=== PATIENT | female | born 1960 | race American Indian/Alaskan Native ===

== ENCOUNTER 2017-01-28 11:19 | Inpatient (IN) | payer OTHER ==
[2017-01-28] MEDS ORDERED: SODIUM CHLORIDE 1,000 ML IV STA (11:40)
[2017-01-28 12:01] LABS: BASOPHIL 0.2 % (0-2.0); EOSINOPHIL 0.5 % (0-4.5); MCH 21.6 pg (25.7-33.7); MCHC 31.2 g/dl (32.0-36.0); MEAN CELL VOLUME 69.4 fl (80-96); MEAN PLT VOLUME 7.1 fl (7.5-11.1); NEUTROPHILS 65.9 % (42.8-82.8); PLATELET COUNT 227 K/MM3 (134-434); RDW 19.4 % (11.6-15.6); WHITE BLOOD COUNT 7.9 K/mm3 (4.0-10.0)
[2017-01-28 12:19] LABS: URINE APPEARANCE CLEAR; URINE BILIRUBIN NEGATIVE (NEGATIVE); URINE BLOOD NEGATIVE (NEGATIVE); URINE COLOR LTYELLOW; URINE GLUCOSE (UA) NEGATIVE (NEGATIVE); URINE KETONE NEGATIVE (NEGATIVE); URINE MARIJUANA THC NEGATIVE ng/ml (CUTOFF=50); URINE NITRITE NEGATIVE (NEGATIVE); URINE PROTEIN NEGATIVE (NEGATIVE); URINE UROBILINOGEN NEGATIVE mg/dL (0.2-1.0)
[2017-01-28 12:27] LABS: ALBUMIN 3.2 g/dl (3.4-5.0); ANION GAP 11 (8-16); BILIRUBIN,TOTAL 0.3 mg/dL (0.2-1.0); CALCIUM 8.3 mg/dL (8.5-10.1); CO2 24 mmol/L (21-32); CREATININE 0.9 mg/dL (0.55-1.02); GLUCOSE,RANDOM 109 mg/dL (74-106); SGOT/AST 25 U/L (15-37); SGPT/ALT 20 U/L (12-78)
[2017-01-28 12:29] LABS: ALK PHOS 74 U/L (45-117); TOT PROT 6.3 g/dl (6.4-8.2)
[2017-01-28 12:36] LABS: URINE LEUK ESTERASE TRACE (NEGATIVE)
[2017-01-28 12:39] LABS: URINE WBC 2 /hpf (3-5)
--- NOTE | 2017-01-28 13:06 | EKG ---
Test Reason : Blood Pressure : / mmHG Vent. Rate : 087 BPM Atrial Rate : 087 BPM P-R Int : 136 ms QRS Dur : 090 ms QT Int : 410 ms P-R-T Axes : 034 043 132 degrees QTc Int : 493 ms NORMAL SINUS RHYTHM NONSPECIFIC T WAVE ABNORMALITY ABNORMAL ECG NO PREVIOUS ECGS AVAILABLE Confirmed by EVELYN BHAKTA MD ([id number]) on 01/28/2017 1:06:26 PM Referred By: Confirmed By:EVELYN BHAKTA MD
--- NOTE | 2017-01-28 13:16 | PDOC ---
History of Present Illness - General Chief Complaint: Pain Stated Complaint: Weakness/ABD PAIN Time Seen by Provider: 01/28/17 11:38 History Source: Patient Exam Limitations: No Limitations - History of Present Illness Travel History: No Initial Comments: 01/28/17 13:07 01/28/17 13:11 HPI: This 56 yr old female with c/o abdominal pain since yesterday. she did have a few bouts of vomiting and noted dark black stools. she has had a GIB in the past when she was younger. 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 Her significant h/o morbid depression results in multiple medications for treatment and under the care of psychiatrist, Dr. Box from [facility]. She does not take any blood thinnners. Chief Compliant: abd pain mostly to the LLQ Pain location:LLQ abd Duration: since yesterday Modifying factors:none Quality:dull Radiating:none Severity:moderate Time: constant PMH: morbid depression, HTN FH: Pt has not recently traveled outside the country in the last 30 days. Pt has not been in contact with people who have traveled out of the country, in contact with people who have been ill with fever, n, v, d. SH: smoking use: current every day smoker illicit drug use: denies use for several years alcohol use: denies use for several years PSH: Home med use noted on SEP Allergies:Multiple ABT on SEP noted Immunizations: PCP: Dr. Ram Past History - Past Medical History Allergies/Adverse Reactions: Allergies Allergy/AdvReac Type Severity Reaction Status Date / Time erythromycin base Allergy Verified 01/28/17 11:50 Penicillins Allergy Verified 01/28/17 11:50 Sulfa (Sulfonamide Allergy Verified 01/28/17 11:50 Antibiotics) Home Medications: Ambulatory Orders Carbamazepine [Tegretol -] 200 mg PO BID 01/28/17 Carvedilol [Coreg -] 12.5 mg PO BID 01/28/17 Citalopram Hydrobromide [Celexa -] 40 mg PO DAILY 01/28/17 LamoTRIgine [LaMICtal] 150 mg PO BID 01/28/17 Anemia: Yes HTN: Yes Psychiatric Problems: Yes Seizures: Yes - Immunization History Immunization Up to Date: Yes - Psycho/Social/Smoking Cessation Hx Suicidal Ideation: No Smoking History: Current every day smoker Have you smoked in the past 12 months: Yes Number of Cigarettes Smoked Daily: 5 Information on smoking cessation initiated: No Hx Alcohol Use: Yes Drug/Substance Use Hx: Yes (cocaine) Substance Use Type: Alcohol, Cocaine Review of Systems - Review of Systems Able to Perform ROS?: Yes Comments:: 01/28/17 13:16 General statement: I have abd pain for 24 hours Hematology: neg history of bleeding/blood thinners Skin: Neg for lesions, rash, bruising. HEENT: Neg symptoms Respiratory: Neg SOB or difficulty in breathing Cardiac: Neg chest pain GI: + pain, with small bouts of nausea and vomiting and with diarrhea : Neg problems on voiding MS: Neg for joint pain/stiffness, no edema Neuro: Neg for LOC, weakness, Endocrine: Neg for excess thirst/hunger, cold/heat intolerance, excess sweating Allergies: + for allergies *Physical Exam - Vital Signs Last Vital Signs Temp Pulse Resp BP Pulse Ox 98.3 F 86 20 134/78 100 01/28/17 11:38 01/28/17 12:43 01/28/17 12:43 01/28/17 12:43 01/28/17 12:43 - Physical Exam Comments: 01/28/17 13:17 General Appearance: This pale and mildly tremulous female with c/o abd pain V/S: hemodynamically stable, afebrile Skin: WNL of pt's skin color, no signs of pallor, mottling, cyanosis Head:symmetrical Eyes: EOM's intact, PERRLA Ears: denies pain Nose: patent Throat: lips, teeth, gums, tongue, buccal mucos pink and moist Lungs: Chest symmetry equal. Cap refill <3 seconds. Lung sounds clear Cardiac: PMI at R 4MCL space, pos S1 and S2, regular rate. Abdomen: Soft, round, nontender : Not observed Muscularskeletal: Gait steady, ambulated in to ER, no edema +PMS Neuro: AAOx3, cognitively intact, speech clear and appropriate. ED Treatment Course - LABORATORY CBC & Chemistry Diagram: 01/28/17 11:48 01/28/17 11:48 - ADDITIONAL ORDERS Additional order review: Laboratory Results 01/28/17 01/28/17 01/28/17 12:38 11:48 11:48 Sodium 141 Potassium 4.4 Chloride 106 Carbon Dioxide 24 Anion Gap 11 BUN 31 H Creatinine 0.9 Creat Clearance w eGFR > 60 Random Glucose 109 H Calcium 8.3 L Total Bilirubin 0.3 AST 25 ALT 20 Alkaline Phosphatase 74 Total Protein 6.3 L Albumin 3.2 L Urine Color Urine Appearance Urine pH Urine Protein Urine Glucose (UA) Urine Ketones Urine Blood Urine Nitrite Urine Bilirubin Urine Urobilinogen Ur Leukocyte Esterase Urine RBC Urine WBC Ur Epithelial Cells Stool Occult Blood Positive Opiates Screen Negative Methadone Screen Negative Barbiturate Screen Negative Phencyclidine Screen Negative Ur Amphetamines Screen Negative MDMA (Ecstasy) Screen Negative Benzodiazepines Screen Negative Cocaine Screen Positive U Marijuana (THC) Screen Negative 01/28/17 11:48 Sodium Potassium Chloride Carbon Dioxide Anion Gap BUN Creatinine Creat Clearance w eGFR Random Glucose Calcium Total Bilirubin AST ALT Alkaline Phosphatase Total Protein Albumin Urine Color Ltyellow Urine Appearance Clear Urine pH 6.0 Urine Protein Negative Urine Glucose (UA) Negative Urine Ketones Negative Urine Blood Negative Urine Nitrite Negative Urine Bilirubin Negative Urine Urobilinogen Negative Ur Leukocyte Esterase Trace H Urine RBC None Urine WBC 2 Ur Epithelial Cells Rare Stool Occult Blood Opiates Screen Methadone Screen Barbiturate Screen Phencyclidine Screen Ur Amphetamines Screen MDMA (Ecstasy) Screen Benzodiazepines Screen Cocaine Screen U Marijuana (THC) Screen 01/28/17 11:48 RBC 2.85 L MCV 69.4 L MCHC 31.2 L RDW 19.4 H MPV 7.1 L Neutrophils % 65.9 Lymphocytes % 26.4 Monocytes % 7.0 Eosinophils % 0.5 Basophils % 0.2 - RADIOLOGY Radiology Studies Ordered: Category Date Time Status ABDOMEN & PELVIS CT WITH CONTR [CT] Stat CT Scan 01/28/17 11:38 Ordered - Medications Given in the ED: ED Medications Discontinued Medications Generic Name Dose Route Start Last Admin Trade Name Freq PRN Reason Stop Dose Admin Sodium Chloride 1,000 mls @ 1,000 mls/hr 01/28/17 11:40 01/28/17 12:07 Normal Saline - IV 01/28/17 12:39 1,000 mls/hr ASDIR STA Administration Medical Decision Making - Medical Decision Making 01/28/17 13:18 Patient is seen and examined. A/P: This 56 yr old with abd pain to the LLQ , dark stook, vomiting, pale in color -CBC with noted anemic numbers -BMP -PT -Abd ct pending po contrast =EKG -type and screen -drug screen with +cocaine level noted =IVF -Stool for guaic with + occult noted -Pt for admission to Dr. Ram service. 01/28/17 14:28 Labs noted: Laboratory Tests 01/28/17 01/28/17 01/28/17 11:48 11:48 11:48 WBC 7.9 RBC 2.85 L Hgb 6.2 L* Hct 19.8 L MCV 69.4 L MCH 21.6 L MCHC 31.2 L RDW 19.4 H Plt Count 227 MPV 7.1 L Neutrophils % 65.9 Lymphocytes % 26.4 Monocytes % 7.0 Eosinophils % 0.5 Basophils % 0.2 Sodium 141 Potassium 4.4 Chloride 106 Carbon Dioxide 24 Anion Gap 11 BUN 31 H Creatinine 0.9 Creat Clearance w eGFR > 60 Random Glucose 109 H Calcium 8.3 L Total Bilirubin 0.3 AST 25 ALT 20 Alkaline Phosphatase 74 Total Protein 6.3 L Albumin 3.2 L Stool Occult Blood Opiates Screen Negative Methadone Screen Negative Barbiturate Screen Negative Phencyclidine Screen Negative Ur Amphetamines Screen Negative MDMA (Ecstasy) Screen Negative Benzodiazepines Screen Negative Cocaine Screen Positive U Marijuana (THC) Screen Negative 01/28/17 12:38 WBC RBC Hgb Hct MCV MCH MCHC RDW Plt Count MPV Neutrophils % Lymphocytes % Monocytes % Eosinophils % Basophils % Sodium Potassium Chloride Carbon Dioxide Anion Gap BUN Creatinine Creat Clearance w eGFR Random Glucose Calcium Total Bilirubin AST ALT Alkaline Phosphatase Total Protein Albumin Stool Occult Blood Positive Opiates Screen Methadone Screen Barbiturate Screen Phencyclidine Screen Ur Amphetamines Screen MDMA (Ecstasy) Screen Benzodiazepines Screen Cocaine Screen U Marijuana (THC) Screen 01/28/17 14:29 -2 u PRBC ordered after a type and screen -stool guiac + -pt NPO, IVF -Spoke with Dr. Carver re: admission -requested Dr. Martinez for GI (consult placed) -pt for admission ICU currently. 01/28/17 14:38 *DC/Admit/Observation/Transfer Diagnosis at time of Disposition: Occult blood positive stool Abdominal pain Qualifiers: Abdominal location: left lower quadrant Qualified Code(s): R10.32 - Left lower quadrant pain Anemia Qualifiers: Anemia type: other cause Other causes of anemia: other cause, not classified Qualified Code(s): D64.89 - Other specified anemias Gastrointestinal bleed Qualifiers: GI bleed type/associated pathology: melena Qualified Code(s): K92.1 - Melena - Discharge Dispostion Admit: Yes - Referrals Referrals: Nabeel Ram MD [Primary Care Provider] - Blade Mratinez DO [Staff Physician] -
[2017-01-28 15:42] LABS: INR 1.12 (0.82-1.09); PROTHROMBIN TIME (PATIENT) 12.4 SEC (9.98-11.88)
[2017-01-28 15:45] LABS: ACTIVATED PTT 27.8 SECONDS (26.9-34.4)
[2017-01-28] MEDS ORDERED: ACETAMINOPHEN 325 MG TABLET (FP) PO PRN (15:53)
[2017-01-28] MEDS ORDERED: ONDANSETRON 4 MG/2 ML VIAL IVPB PRN (15:53)
[2017-01-28] MEDS ORDERED: PANTOPRAZOLE SODIUM 80 MG in SODIUM CHLORIDE 100 ML IVPB ONE (16:02)
--- NOTE | 2017-01-28 16:02 | HP ---
Admitting History and Physical - Primary Care Physician PCP: Nabeel Ram - Admission Chief Complaint: I threw up History of Present Illness: Ms Badillo is a 56 year old female who comes in with abdominal pain and bleeding. She says she was in her normal state of health on Wednesday. She was at a green party and she was eating meat (she is normally vegetarian). On Wednesday she says she began to feel bad. She says she started having abdominal pain on Wednesday. She says it was located in her lower left abdomen and would radiate across. She says it was a constipated like pain. Wednesday and Wednesday she was not eating much because of the abdominal pain. Yesterday she ate something and she said she felt it get caught in her throat. She threw up and then went to bed. She says when she looked in the morning it was blood. She said with this she was also having dark black stool. She had a headache associated with it and she was taking a full aspirin once a day. She was not taking ibuprofen. She says she had lightheadedness, shortness of breath, chest pressure, and weakness with minimal exertion. She denies fevers, chills, difficulty or pain on urination, or swelling. She says she has a history of anemia and was recommended to have a colonoscopy in July but has been unable secondary to insurance issues. History Source: Patient Limitations to Obtaining History: No Limitations - Past Medical History Cardiovascular: Yes: HTN Psych: Yes: Depression - Past Surgical History Past Surgical History: Yes: Tubal Ligation Additional Past Surgical History: - Smoking History Smoking history: Current every day smoker Have you smoked in the past 12 months: Yes Aproximately how many cigarettes per day: 5 - Alcohol/Substance Use Hx Alcohol Use: Yes History of Substance Use: reports: Cocaine (10 years ago) - Social History Usual Living Arrangement: Yes: With Parent ADL: Independent History of Recent Travel: No Home Medications - Allergies Allergies/Adverse Reactions: Allergies Allergy/AdvReac Type Severity Reaction Status Date / Time erythromycin base Allergy Verified 01/28/17 11:50 Penicillins Allergy Verified 01/28/17 11:50 Sulfa (Sulfonamide Allergy Verified 01/28/17 11:50 Antibiotics) - Home Medications Home Medications: Ambulatory Orders Carbamazepine [Tegretol -] 200 mg PO BID 01/28/17 Carvedilol [Coreg -] 12.5 mg PO BID 01/28/17 Citalopram Hydrobromide [Celexa -] 40 mg PO DAILY 01/28/17 LamoTRIgine [LaMICtal] 150 mg PO BID 01/28/17 Family Disease History - Family Disease History Family Disease History: Other: Father (CVA), Mother (dementia), Brother (? colon cancer), Son (IBS) Review of Systems Findings/Remarks: Full review of systems obtained, as per HPI and otherwise negative Physical Examination Vital Signs: Vital Signs Temperature 98.3 F 01/28/17 11:38 Pulse Rate 86 01/28/17 12:43 Respiratory Rate 20 01/28/17 12:43 Blood Pressure 134/78 01/28/17 12:43 O2 Sat by Pulse Oximetry (%) 100 01/28/17 12:43 Constitutional: Yes: Well Nourished, No Distress, Calm Eyes: Yes: Conjunctiva Clear, EOM Intact, PERRL HENT: Yes: Atraumatic, Normocephalic Cardiovascular: Yes: Tachycardia. No: Gallop, Murmur, Rub Respiratory: Yes: Regular, CTA Bilaterally, On Nasal O2. No: Rales, Rhonchi, Wheezes Gastrointestinal: Yes: Normal Bowel Sounds, Soft. No: Distention, Tenderness Extremities: Yes: WNL Edema: No Labs: Laboratory Results - last 24 hr 01/28/17 01/28/17 01/28/17 11:48 11:48 11:48 WBC 7.9 RBC 2.85 L Hgb 6.2 L* Hct 19.8 L MCV 69.4 L MCH 21.6 L MCHC 31.2 L RDW 19.4 H Plt Count 227 MPV 7.1 L Neutrophils % 65.9 Lymphocytes % 26.4 Monocytes % 7.0 Eosinophils % 0.5 Basophils % 0.2 INR PTT (Actin FS) Sodium 141 Potassium 4.4 Chloride 106 Carbon Dioxide 24 Anion Gap 11 BUN 31 H Creatinine 0.9 Creat Clearance w eGFR > 60 Random Glucose 109 H Calcium 8.3 L Total Bilirubin 0.3 AST 25 ALT 20 Alkaline Phosphatase 74 Total Protein 6.3 L Albumin 3.2 L Urine Color Ltyellow Urine Appearance Clear Urine pH 6.0 Urine Protein Negative Urine Glucose (UA) Negative Urine Ketones Negative Urine Blood Negative Urine Nitrite Negative Urine Bilirubin Negative Urine Urobilinogen Negative Ur Leukocyte Esterase Trace H Urine RBC None Urine WBC 2 Ur Epithelial Cells Rare Stool Occult Blood Opiates Screen Methadone Screen Barbiturate Screen Phencyclidine Screen Ur Amphetamines Screen MDMA (Ecstasy) Screen Benzodiazepines Screen Cocaine Screen U Marijuana (THC) Screen Blood Type Antibody Screen Crossmatch 01/28/17 01/28/17 01/28/17 11:48 12:38 12:38 WBC RBC Hgb Hct MCV MCH MCHC RDW Plt Count MPV Neutrophils % Lymphocytes % Monocytes % Eosinophils % Basophils % INR PTT (Actin FS) Sodium Potassium Chloride Carbon Dioxide Anion Gap BUN Creatinine Creat Clearance w eGFR Random Glucose Calcium Total Bilirubin AST ALT Alkaline Phosphatase Total Protein Albumin Urine Color Urine Appearance Urine pH Urine Protein Urine Glucose (UA) Urine Ketones Urine Blood Urine Nitrite Urine Bilirubin Urine Urobilinogen Ur Leukocyte Esterase Urine RBC Urine WBC Ur Epithelial Cells Stool Occult Blood Positive Opiates Screen Negative Methadone Screen Negative Barbiturate Screen Negative Phencyclidine Screen Negative Ur Amphetamines Screen Negative MDMA (Ecstasy) Screen Negative Benzodiazepines Screen Negative Cocaine Screen Positive U Marijuana (THC) Screen Negative Blood Type B POSITIVE Antibody Screen Negative Crossmatch 01/28/17 01/28/17 13:00 14:42 WBC RBC Hgb Hct MCV MCH MCHC RDW Plt Count MPV Neutrophils % Lymphocytes % Monocytes % Eosinophils % Basophils % INR 1.12 PTT (Actin FS) 27.8 Sodium Potassium Chloride Carbon Dioxide Anion Gap BUN Creatinine Creat Clearance w eGFR Random Glucose Calcium Total Bilirubin AST ALT Alkaline Phosphatase Total Protein Albumin Urine Color Urine Appearance Urine pH Urine Protein Urine Glucose (UA) Urine Ketones Urine Blood Urine Nitrite Urine Bilirubin Urine Urobilinogen Ur Leukocyte Esterase Urine RBC Urine WBC Ur Epithelial Cells Stool Occult Blood Opiates Screen Methadone Screen Barbiturate Screen Phencyclidine Screen Ur Amphetamines Screen MDMA (Ecstasy) Screen Benzodiazepines Screen Cocaine Screen U Marijuana (THC) Screen Blood Type B POSITIVE Antibody Screen Crossmatch See Detail Imaging - Results Cat Scan: Report Reviewed Problem List - Problems (1) Gastrointestinal bleed Assessment/Plan: -patient with melena and possible hematochezia -admit to the ICU -start on protonix gtt -seen by GI and will decide on intervention Code(s): K92.2 - GASTROINTESTINAL HEMORRHAGE, UNSPECIFIED Qualifiers: GI bleed type/associated pathology: unspecified gastrointestinal hemorrhage type Qualified Code(s): K92.2 - Gastrointestinal hemorrhage, unspecified (2) Anemia Assessment/Plan: -says had anemia in July but was asymptomatic -however now with active bleed and symptomatic -having pre-syncope, shortness of breath, and chest pain -transfuse and monitor Code(s): D64.9 - ANEMIA, UNSPECIFIED Qualifiers: Anemia type: other cause Other causes of anemia: acute posthemorrhagic Qualified Code(s): D62 - Acute posthemorrhagic anemia (3) Abdominal pain Assessment/Plan: -CT scan reviewed -will d/w GI, do not think infectious Code(s): R10.9 - UNSPECIFIED ABDOMINAL PAIN Qualifiers: Abdominal location: left lower quadrant Qualified Code(s): R10.32 - Left lower quadrant pain (4) Depression Assessment/Plan: -continue home regimen Code(s): F32.9 - MAJOR DEPRESSIVE DISORDER, SINGLE EPISODE, UNSPECIFIED Qualifiers: Depression Type: major depressive disorder Major depression recurrence : recurrent Psychotic features: without psychotic features (5) Chest pain Assessment/Plan: -suspect secondary to demand from anemia -will check cardiac enzymes x3 -cardiology consult Code(s): R07.9 - CHEST PAIN, UNSPECIFIED Assessment/Plan 67 minutes spent in critical care time with this patient
--- NOTE | 2017-01-28 16:09 | CON.GI ---
Consult Consult Specialty:: GI Referred by:: Dr. Wellington Carver Reason for Consultation:: Abdominal pain, hematemesis, anemia - History of Present Illness Chief Complaint: I have abdominal pain and vomited blood History of Present Illness: 56F admitted through [facility] ER for evaluation of weakness, abdominal pain and vomiting blood. The patient states being in [place] up until yesterday when her issues began. She describes a sensation of food getting stuck in her esophagus that seemed to improve after she vomited. The vomitus was bloody when she looked in the toilet bowl this morning. She also had a black bowel movement yesterday and a small black BM this morning as well, along with left sided abdominal cramping/pain that radiated to the . in the ER, triage vitals revealed T: 98.3, P: 97, BP: 129/93, hgb 6.2 with low MCV and BUN of 31. Urine tox was + for cocaine and while she does say that she used to abuse crack cocaine, she denies current use. She does recall being at a libertarian this weekend where there may have been cocaine present. She received 1 liter of NS. She was short of breath, complained of chest pressure while getting onto the ambulance and felt lightheaded. She did not lose consciousness. She alludes to having been told of being anemic from her last bloodwork with Dr. Ram 08/04. While he advised a colonoscopy she explains that insurance issues prevented her from scheduling one. She has never had an endoscopy either. She has a 1/2 brother that may have had some type of GI malignancy as he had a colon surgery. She took 325mg ASA wednesday and wednesday given that she had a headache as opposed to her daily 81mg ASA. Currently she denies lightheadedness, chest pain and there has been no active bleeding noted. - History Source History Provided By: Patient, Medical Record Limitations to Obtaining History: No Limitations - Past Medical History Cardio/Vascular: Yes: HTN Psych: Yes: Depression - Past Surgical History Additional Surgical History: BTL, - Alcohol/Substance Use Hx Alcohol Use: Yes (former alcohol abuse quit 10 years ago) History of Substance Use: reports: Cocaine (denies current use albeit urine tox +) - Smoking History Smoking history: Current every day smoker Have you smoked in the past 12 months: Yes Aproximately how many cigarettes per day: 5 - Social History Usual Living Arrangement: With Parent ADL: Independent Occupation: Disabled Place of : [employer] [facility] History of Recent Travel: No Home Medications - Allergies Allergies/Adverse Reactions: Allergies Allergy/AdvReac Type Severity Reaction Status Date / Time erythromycin base Allergy Verified 01/28/17 11:50 Penicillins Allergy Verified 01/28/17 11:50 Sulfa (Sulfonamide Allergy Verified 01/28/17 11:50 Antibiotics) - Home Medications Home Medications: Ambulatory Orders Carbamazepine [Tegretol -] 200 mg PO BID 01/28/17 Carvedilol [Coreg -] 12.5 mg PO BID 01/28/17 Citalopram Hydrobromide [Celexa -] 40 mg PO DAILY 01/28/17 LamoTRIgine [LaMICtal] 150 mg PO BID 01/28/17 Family Disease History - Family Disease History Family Disease History: Other: Father ( 68: CVA), Mother (Alive: 84: dementia), Brother (3: healthy, 1 1/2 brother with ? colon cancer), Sister (2: healthy) Other Family History: 2 healthy children Review of Systems - Review of Systems Constitutional: denies: Unintentional Wgt. Loss Cardiovascular: reports: Chest Pain, Shortness of Breath Respiratory: reports: SOB on Exertion. denies: Cough Gastrointestinal: reports: Abdominal Pain, Melena, Vomiting Blood. denies: Rectal Bleeding Hematology/Lymphatic: reports: Easily Bruised Physical Exam-GI Vital Signs: Vital Signs Temperature Afeb 01/28/17 16:30 Pulse Rate 100 01/28/17 16:30 Respiratory Rate 20 01/28/17 16:30 Blood Pressure 137/81 01/28/17 16:30 O2 Sat by Pulse Oximetry (%) 100 01/28/17 16:30 Constitutional: Yes: Well Nourished, Calm Eyes: No: Sclera Icterus Cardiovascular: Yes: Tachycardia. No: Murmur Respiratory: Yes: CTA Bilaterally Gastrointestinal Inspection: No: Distention, Scars ...Auscultate: No: Normoactive Bowel Sounds ...Palpate: Yes: Soft, Tenderness (Mild TTP left abdomen). No: Guarding, Hepatomegaly, Splenomegaly ...Percussion: No: Tympanitic ...Rectal Exam: Yes: Other (No external lesions, no masses, scant dark brown stool guaiac Positive) Edema: Yes Edema: LLE: Trace (LLE>RLE), RLE: Trace Neurological: Yes: Alert, Oriented Labs: INR, PTT INR 1.12 (0.82-1.09) 01/28/17 14:42 CBC, BMP 01/28/17 11:48 01/28/17 11:48 Hepatic Panel Total Bilirubin 0.3 mg/dL (0.2-1.0) 01/28/17 11:48 AST 25 U/L (15-37) 01/28/17 11:48 ALT 20 U/L (12-78) 01/28/17 11:48 Alkaline Phosphatase 74 U/L (45-117) 01/28/17 11:48 Albumin 3.2 g/dl (3.4-5.0) L 01/28/17 11:48 INR INR 1.12 (0.82-1.09) 01/28/17 14:42 Imaging - Results Cat Scan: Report Reviewed (With Dr. Vinson: Hiatal hernia, ? thickening of gastric wall, otherwise no acute pathology within the abdomen) Problem List - Problems (1) Gastrointestinal bleed Assessment/Plan: Acute bleeding event described while microcytosis points towards a chronic process as well. I discussed this with Ms. Badillo and explained that once she is properly transfused, to exclude intraluminal pathology such as esophageal mass, ulcers, bleeding blood vessels or other processes of the intestinal tract that could lead to GI bleeding such as a colon cancer, EGD and colonoscopy could be undertaken (starting with EGD given h/o hematemesis and dysphagia). We discussed potential risks of the procedure like but not limited to bleeding, perforation requiring surgery to repair, infection and sedation medication effects all of which could be potentially life threatening. She has agreed to the procedures. For now: Agree with ICU admission NPO except meds Transfuse to hgb 8-9 Protonix 80mg bolus (ordered) followed by infusion @ 8mg/hr AM labs Monitor for signs of active ongoing GI bleeding and call if any change in patient status Code(s): K92.2 - GASTROINTESTINAL HEMORRHAGE, UNSPECIFIED Qualifiers: GI bleed type/associated pathology: melena Qualified Code(s): K92.1 - Melena
[2017-01-28 16:53] LABS: ANISOCYTOSIS 1+; HYPOCHROMIA 2+; MICROCYTOSIS 1+
[2017-01-28] MEDS: PANTOPRAZOLE SODIUM 80 MG in SODIUM CHLORIDE 100 ML IVPB SCH (16:57)
[2017-01-28] MEDS: SODIUM CHLORIDE 1,000 ML IV SCH (16:57)
--- NOTE | 2017-01-28 16:57 | CONSULT ---
Consultation: REQUESTING PROVIDER: Dr. Carver CONSULT REQUEST: We have been asked to medically evaluate this patient for ( specify). HISTORY OF PRESENT ILLNESS: 56 year old female w/ pmh depression, HTN, ulcerative colitis, and previous GI bleed presented to the ED after 2 day hx of hematemesis, pain in her lower abdomen, and heart palpitations with b/l extremity numbness. Patient states she began having abdominal pain 4 days ago after a green party she went to on Wednesday. Reports one episode of hematemesis on Wednesday night (2 days ago) followed by 2 bowel movements of black, tarry quality. [place] exhausted for the past few days with lightheadedness when she tried to stand up. Patient has not eaten in 2 days. Additionally, she complains of food getting stuck in her chest when she swallows and neck pain near the jaw. She states that she hasn't had any of these symptoms in the past, but admits to having a bleeding ulcer many years ago. Pt states that she took 2 aleve a week ago. allergies: penicillin, erythromycin, sulfa-drugs (all cause anaphylaxis) pmh: depression, HTN, ulcerative colitis psh: tubal ligation tobacco: smokes 5 cigs/day for 40 years alcohol: recovering alcoholic, hasn't had a drink in 11 years drugs: denies, but states there may have been other individuals using cocaine her event on Wednesday FamHx: DM, stroke on father's side of the family, heart disease on mother's side , son with colitis REVIEW OF SYSTEMS: CONSTITUTIONAL: generalized weakness Absent: fever, chills, diaphoresis, , malaise, loss of appetite, weight change HEENT: Globus sensation (after eating) Absent: rhinorrhea, nasal congestion, throat pain, throat swelling, mouth swelling, ear pain, eye pain, visual changes CARDIOVASCULAR: palpitations, lightheadedness Absent: chest pain, syncope, irregular heart rate, , peripheral edema RESPIRATORY: dry cough Absent: shortness of breath, dyspnea with exertion, orthopnea, wheezing, stridor , hemoptysis GASTROINTESTINAL:abdominal pain, nausea, hematemesis, melana Absent: abdominal distension, vomiting, diarrhea, constipation, melena, hematochezia GENITOURINARY: Absent: dysuria, frequency, urgency, hesitancy, hematuria, flank pain, genital pain MUSCULOSKELETAL: neck pain Absent: myalgia, arthralgia, joint swelling, back pain, SKIN: Absent: rash, itching, pallor HEMATOLOGIC/IMMUNOLOGIC: Absent: easy bleeding, easy bruising, lymphadenopathy, frequent infections ENDOCRINE: Absent: unexplained weight gain, unexplained weight loss, heat intolerance, cold intolerance NEUROLOGIC: Absent: headache, focal weakness or paresthesias, dizziness, unsteady gait, seizure, mental status changes, bladder or bowel incontinence PSYCHIATRIC: Absent: anxiety, depression, suicidal or homicidal ideation, hallucinations. PHYSICAL EXAMINATION GENERAL: Awake, alert, and fully oriented, in no acute distress. HEAD: Normal with no signs of trauma. EYES: Pupils equal, round and reactive to light, extraocular movements intact, sclera anicteric, conjunctiva pale. No lid lag. EARS, NOSE, THROAT: Ears normal, nares patent, oropharynx clear without exudates. Moist mucous membranes. NECK: Normal range of motion, supple without lymphadenopathy, JVD, or masses. LUNGS: Breath sounds equal, clear to auscultation bilaterally. No wheezes, and no crackles. No accessory muscle use. HEART: Regular rate and rhythm, normal S1 and S2 without murmur, rub or gallop. ABDOMEN: Soft, (+) tenderness in LLQ + LUPQ, not distended, normoactive bowel sounds, no guarding, no rebound, no masses. No hepatomegaly or splenomegaly. MUSCULOSKELETAL: Normal range of motion at all joints. No bony deformities or tenderness. No CVA tenderness. UPPER EXTREMITIES: 2+ pulses, warm, well-perfused. No cyanosis. No clubbing. Cap refill 4 seconds. No peripheral edema. LOWER EXTREMITIES: 2+ pulses, warm, well-perfused. No calf tenderness. No peripheral edema. NEUROLOGICAL: Cranial nerves II-XII intact. Normal speech. Normal gait. PSYCHIATRIC: Cooperative. Good eye contact. Appropriate mood and affect. SKIN: Warm, dry, normal turgor, no rashes or lesions noted. CBC,CMP WBC 7.9 K/mm3 (4.0-10.0) 01/28/17 11:48 RBC 2.85 M/mm3 (3.60-5.2) L 01/28/17 11:48 Hgb 6.2 GM/dL (10.7-15.3) L* 01/28/17 11:48 Hct 19.8 % (32.4-45.2) L 01/28/17 11:48 MCV 69.4 fl (80-96) L 01/28/17 11:48 MCH 21.6 pg (25.7-33.7) L 01/28/17 11:48 MCHC 31.2 g/dl (32.0-36.0) L 01/28/17 11:48 RDW 19.4 % (11.6-15.6) H 01/28/17 11:48 Plt Count 227 K/MM3 (134-434) 01/28/17 11:48 MPV 7.1 fl (7.5-11.1) L 01/28/17 11:48 Neutrophils % 65.9 % (42.8-82.8) 01/28/17 11:48 Lymphocytes % 26.4 % (8-40) 01/28/17 11:48 Monocytes % 7.0 % (3.8-10.2) 01/28/17 11:48 Eosinophils % 0.5 % (0-4.5) 01/28/17 11:48 Basophils % 0.2 % (0-2.0) 01/28/17 11:48 Hypochromic-Microcytic 2+ 01/28/17 11:48 Anisocytosis 1+ 01/28/17 11:48 Microcytosis 1+ 01/28/17 11:48 Sodium 141 mmol/L (136-145) 01/28/17 11:48 Potassium 4.4 mmol/L (3.5-5.1) 01/28/17 11:48 Chloride 106 mmol/L (98-107) 01/28/17 11:48 Carbon Dioxide 24 mmol/L (21-32) 01/28/17 11:48 Anion Gap 11 (8-16) 01/28/17 11:48 BUN 31 mg/dL (7-18) H 01/28/17 11:48 Creatinine 0.9 mg/dL (0.55-1.02) 01/28/17 11:48 Creat Clearance w eGFR > 60 (>60) 01/28/17 11:48 Random Glucose 109 mg/dL (74-106) H 01/28/17 11:48 Calcium 8.3 mg/dL (8.5-10.1) L 01/28/17 11:48 Total Bilirubin 0.3 mg/dL (0.2-1.0) 01/28/17 11:48 AST 25 U/L (15-37) 01/28/17 11:48 ALT 20 U/L (12-78) 01/28/17 11:48 Alkaline Phosphatase 74 U/L (45-117) 01/28/17 11:48 Total Protein 6.3 g/dl (6.4-8.2) L 01/28/17 11:48 Albumin 3.2 g/dl (3.4-5.0) L 01/28/17 11:48 INR, PTT INR 1.12 (0.82-1.09) 01/28/17 14:42 Active Medications Generic Name Dose Route Start Last Admin Trade Name Freq PRN Reason Stop Dose Admin Acetaminophen 650 mg 01/28/17 15:53 Tylenol - PO Q4H PRN FEVER OR PAIN Carbamazepine 200 mg 01/28/17 22:00 Tegretol - PO BID MASSIMO Carvedilol 12.5 mg 01/28/17 22:00 Coreg - PO BID MASSIMO Chlorhexidine Gluconate 1 applic 01/28/17 22:00 Hibiclens For Decolonization - TP HS MASSIMO Citalopram Hydrobromide 40 mg 01/29/17 10:00 Celexa - PO DAILY MASSIMO Pantoprazole Sodium 80 mg/ 100 mls @ 10 mls/hr 01/28/17 16:35 Sodium Chloride IVPB Q10H MASSIMO 8 MG/HR Sodium Chloride 1,000 mls @ 100 mls/hr 01/28/17 16:00 Normal Saline - IV ASDIR MASSIMO Pantoprazole Sodium 80 mg/ 100 mls @ 200 mls/hr 01/28/17 16:02 Sodium Chloride IVPB 01/28/17 16:31 ONCE ONE Lamotrigine 100 mg 01/28/17 22:00 Lamictal - PO BID MASSIMO Lamotrigine 50 mg 01/28/17 22:00 Lamictal - PO BID MASSIMO Mupirocin 1 applic 01/28/17 22:00 Bactroban Ointment (For Decolonization) - NS 02/02/17 21:59 BID MASSIMO Ondansetron HCl 4 mg 01/28/17 15:53 Zofran Injection IVPB Q6H PRN NAUSEA EKG (01/28): NSR w/ non-specific T wave abnormality Imaging: CT abd/pelvis (01/28): moderate to large hiatal hernia seen with equivocal diffuse fold thickening ASSESSMENT/PLAN: 56 year old female with acute upper GI bleed Neuro/psych: LE paresthesias and lightheadedness post-standing likely 2/2 orthostasis/anemia -ondensetron PRN nausea -cont. lamotrigine 100mg PO BID + carbamazepine 200mg PO BID for depression ( per pt) -cont. citalopram 40mg PO QD Cardiovascular: palpitations on exertion 2/2 anemia. Pt has pmh HTN -cont. carvedilol 12.5mg PO BID GI: acute GI bleed likely 2/2 duodenal ulcer vs mesenteric ischemia (2/2 cocaine use) vs esophagitis vs hiatal hernia -transfuse 2U PRBCs over 6 hours (5:30pm bag 1) -recheck CBC at 1:00am -pantoprazole 80mg IV -consult GI: Dr. Martinez for upper endoscopy -AM CBC, BMP, trops -trend hgb FEN: -IVF NS 1L @ 100ml/hr -NPO Dispo: We will continue to follow the patient in the ICU. Thank you for this consultative opportunity. Problem List - Problems (1) Gastrointestinal bleed Code(s): K92.2 - GASTROINTESTINAL HEMORRHAGE, UNSPECIFIED Qualifiers: GI bleed type/associated pathology: unspecified gastrointestinal hemorrhage type Qualified Code(s): K92.2 - Gastrointestinal hemorrhage, unspecified (2) Abdominal pain Code(s): R10.9 - UNSPECIFIED ABDOMINAL PAIN Qualifiers: Abdominal location: left lower quadrant Qualified Code(s): R10.32 - Left lower quadrant pain (3) Anemia Code(s): D64.9 - ANEMIA, UNSPECIFIED Qualifiers: Anemia type: other cause Other causes of anemia: acute posthemorrhagic Qualified Code(s): D62 - Acute posthemorrhagic anemia (4) Depression Code(s): F32.9 - MAJOR DEPRESSIVE DISORDER, SINGLE EPISODE, UNSPECIFIED Qualifiers: Depression Type: major depressive disorder Major depression recurrence : recurrent Psychotic features: without psychotic features (5) Occult blood positive stool Code(s): R19.5 - OTHER FECAL ABNORMALITIES Visit type - Emergency Visit Emergency Visit: No - New Patient This patient is new to me today: Yes Date on this admission: 01/28/17 - Critical Care Critical Care patient: Yes Total Critical Care Time (in minutes): 45 Critical Care Statement: The care of this patient involved high complexity decision making to prevent further life threatening deterioration of the patient 's condition and/or to evalute & treat vital organ system(s) failure or risk of failure.
[2017-01-28 17:18] VITALS: BMI 28.7
[2017-01-28] MEDS: NICOTINE 14 MG/24 HOURS TOPICAL PATCH TD SCH (17:18)
--- NOTE | 2017-01-28 18:15 | CON.CARD ---
Cardiology Consult (text) - Consultation Consultation Note: CC: CP 56 yo smoker/cocaine user with h/o HTN, depression, recent anemia for which she was supposed to have cscope eval in July who p/w abdominal pain and bleeding. + abdominal pain this weekend with resulting dec po intake. + dysphagia yesterday and episode of vomiting blood. + dark black stool. + chronic headache takes 325 ASA daily. previiously took a lot of nsaids and was told to stopped. Now rarely takes but did take 2 tablets this weekend. h/o hypokalemia. denies etoh, restricting diet (although states she has had significant weight loss from healthy diet over the course of the year), denies chronic vomiting or diarrhea no cp but + epigastric pain with recent sx's, --> associated dizziness, lightheaedness. no orthopnea, pnd, le edema, palps, claudication, sob She denies fevers, chills, cough congestion, rashes, visual disturbances, transient neurologic symptoms. + joint pain Pmhx/Pshx: per hpi, Tubal Ligation social hx: current smoker, prior cocaine use with current + utox (pt denies) fam hx: Father (CVA), Mother (dementia), Brother (? colon cancer), Son (IBS) ros: per hpi Ambulatory Orders Carbamazepine [Tegretol -] 200 mg PO BID 01/28/17 Carvedilol [Coreg -] 12.5 mg PO BID 01/28/17 Citalopram Hydrobromide [Celexa -] 40 mg PO DAILY 01/28/17 LamoTRIgine [LaMICtal] 150 mg PO BID 01/28/17 Current Medications Acetaminophen (Tylenol -) 650 mg PO Q4H PRN PRN Reason: FEVER OR PAIN Carbamazepine (Tegretol -) 200 mg PO BID MASSIMO Carvedilol (Coreg -) 12.5 mg PO BID MASSIMO Chlorhexidine Gluconate (Hibiclens For Decolonization -) 1 applic TP HS MASSIMO Citalopram Hydrobromide (Celexa -) 40 mg PO DAILY MASSIMO Pantoprazole Sodium 80 mg/ (Sodium Chloride) 100 mls @ 10 mls/hr IVPB Q10H MASSIMO PRN Reason: 8 MG/HR Last Admin: 01/28/17 16:57 Dose: 10 mls/hr Sodium Chloride (Normal Saline -) 1,000 mls @ 100 mls/hr IV ASDIR [facility] Last Admin: 01/28/17 16:57 Dose: 100 mls/hr Lamotrigine (Lamictal -) 100 mg PO BID MASSIMO Lamotrigine (Lamictal -) 50 mg PO BID [facility] Mupirocin (Bactroban Ointment (For Decolonization) -) 1 applic NS BID [facility] Stop: 02/02/17 21:59 Nicotine (Nicoderm Patch -) 14 mg TD DAILY [facility] Last Admin: 01/28/17 17:18 Dose: 14 mg Ondansetron HCl (Zofran Injection) 4 mg IVPB Q6H PRN PRN Reason: NAUSEA Vital Signs - 24 hr 01/28/17 01/28/17 01/28/17 11:38 12:43 15:53 Temperature 98.3 F 97.8 F Pulse Rate 97 H 104 H Pulse Rate [ 86 Left Radial] Respiratory 20 20 22 Rate Blood Pressure 129/93 157/79 Blood Pressure 134/78 [Right Arm] O2 Sat by Pulse 100 100 Oximetry (%) 01/28/17 01/28/17 16:59 18:07 Temperature Pulse Rate 87 Pulse Rate [ Left Radial] Respiratory 22 Rate Blood Pressure 130/75 Blood Pressure [Right Arm] O2 Sat by Pulse 100 Oximetry (%) Intake & Output 01/26/17 01/27/17 01/28/17 01/29/17 07:59 07:59 07:59 07:59 Intake Total 2100 Balance 2100 Weight 162 lb nad, anxious jvd flat, neck supple ctab, nl effort rrr nl s1, s2 no mrg + bs soft nt nd ext without e/c/c + dp/pt aaox3 no jaundice, diaphoresis no carotid bruits CBC, BMP 01/28/17 11:48 01/28/17 11:48 Laboratory Tests 01/28/17 01/28/17 01/28/17 11:48 11:48 12:38 Calcium 8.3 L Total Bilirubin 0.3 AST 25 ALT 20 Alkaline Phosphatase 74 Albumin 3.2 L Stool Occult Blood Positive Cocaine Screen Positive ekg: nsr, prolonged qtc, non-specific diffuse t wave ab tele: sr abd ct: hiatal hernia, no acute pathology. 56 yo smoker/cocaine user with h/o HTN, depression, recent anemia for which she was supposed to have cscope eval in July who p/w abdominal pain and bleeding. CP - atypical for cardiac pain, lkely 2/2 GI issue. hgb 6 at the time. reevaluate sx's once hgb normalizies - counseled on dangers of cocaine and bb use. patient endorses understanding, but denies using cocaine. States she has been on coreg for years. prolonged qtc - on longstanding citalopram. caution with other qt prolonging meds like zofran , try alternative. - aggressive lyte repletion - tele monitoring - repeat ekg once acute issues resolve tob -cessation counseling htn - controlled on coreg. ? safety with cocaine use as above but pt denies.
[2017-01-28 18:39] LABS: TROPONIN I < 0.02 ng/ml (0.00-0.05)
--- NOTE | 2017-01-28 20:57 | CONSULT ---
Consult - text type - Consultation Consultation Note: PULM/CCM Pt seen and examined in ICU CC: dark stool, weakness, hematemesis HPI: Ms Badillo is a 56 y/o woman with Hx of major depression, HTN, on daily asa (81mg) who presents with hematemesis, melena, and anemia. Pt was in [facility] until yesterday when she began to have c/o feeling food stuck in her esophagus, nausea, and 1 episode overnight of hematemesis, She also noted dark tarry stool x 2 and had some LLQ abd pain, now since resolved. She was prompted to go to ED by noting her emesis was bright blood in basin from overnight. She relates recent cocaine use, and taking full strength ASA (325) in recent days. She denies LOC, falls, cxpn, SOB, BRBPR. In recent months she has been trying to schedule a colonoscopy due to chronic anemia but has been unable due to insurance issues. CTAP done without acute finding. In ED pt was afebrile, normotensive, mildly tachycardic, saturating well on RA. Her H/h was 6.2/19 , microcytic . She was bolused 1 L of fluid, bolused protonix and started on gtt. She was ordered two PRBC and seen by GI with plan for EGD in am with Dr Soto. In ICU pt relates resolution of LLQ abd pain, feeling generally better, and having just had another large dark melanotic BM. Past Medical History Cardio/Vascular HTN Psych Depression Past Surgical History Past Surgical History Tubal Ligation Home Medications Medication Instructions Recorded Carbamazepine [Tegretol -] 200 mg PO BID 01/28/17 Carvedilol [Coreg -] 12.5 mg PO BID 01/28/17 Citalopram Hydrobromide [Celexa -] 40 mg PO DAILY 01/28/17 LamoTRIgine [LaMICtal] 150 mg PO BID 01/28/17 Current Medications Acetaminophen (Tylenol -) 650 mg PO Q4H PRN PRN Reason: FEVER OR PAIN Carbamazepine (Tegretol -) 200 mg PO BID MASSIMO Carvedilol (Coreg -) 12.5 mg PO BID MASSIMO Chlorhexidine Gluconate (Hibiclens For Decolonization -) 1 applic TP HS MASSIMO Citalopram Hydrobromide (Celexa -) 40 mg PO DAILY MASSIMO Pantoprazole Sodium 80 mg/ (Sodium Chloride) 100 mls @ 10 mls/hr IVPB Q10H MASSIMO PRN Reason: 8 MG/HR Last Admin: 01/28/17 16:57 Dose: 10 mls/hr Sodium Chloride (Normal Saline -) 1,000 mls @ 100 mls/hr IV ASDIR MASSIMO Last Admin: 01/28/17 16:57 Dose: 100 mls/hr Lamotrigine (Lamictal -) 100 mg PO BID MASSIMO Lamotrigine (Lamictal -) 50 mg PO BID MASSIMO Mupirocin (Bactroban Ointment (For Decolonization) -) 1 applic NS BID MASSIMO Stop: 02/02/17 21:59 Nicotine (Nicoderm Patch -) 14 mg TD DAILY MASSIMO Last Admin: 01/28/17 17:18 Dose: 14 mg Ondansetron HCl (Zofran Injection) 4 mg IVPB Q6H PRN PRN Reason: NAUSEA Social History Smoking history Current every day smoker Have you smoked in the past 12 Yes months Hx Alcohol Use Yes History of Substance Use Cocaine (10 years ago) Usual Living Arrangement With Parent ADL Independent Occupation Disabled Family HX: Father --> ETOH, CVA Mother alive--> dementia Brother with ? colon CA with resection Urine Test Results Urine Color Ltyellow 01/28/17 11:48 Urine Appearance Clear 01/28/17 11:48 Urine pH 6.0 (5.0-8.0) 01/28/17 11:48 Ur Specific [place] 1.010 (1.005-1.025) 01/28/17 11:48 Urine Protein Negative (NEGATIVE) 01/28/17 11:48 Urine Glucose (UA) Negative (NEGATIVE) 01/28/17 11:48 Urine Ketones Negative (NEGATIVE) 01/28/17 11:48 Urine Blood Negative (NEGATIVE) 01/28/17 11:48 Urine Nitrite Negative (NEGATIVE) 01/28/17 11:48 Urine Bilirubin Negative (NEGATIVE) 01/28/17 11:48 Ur Leukocyte Esterase Trace (NEGATIVE) H 01/28/17 11:48 Urine RBC None /hpf (0-3) 01/28/17 11:48 Urine WBC 2 /hpf (3-5) 01/28/17 11:48 Ur Epithelial Cells Rare /hpf (FEW) 01/28/17 11:48 Vital Signs Temp 97.8 F 01/28/17 15:53 Pulse 87 01/28/17 18:07 Resp 22 01/28/17 18:07 BP 130/75 01/28/17 18:07 Pulse Ox 100 01/28/17 16:59 Intake & Output 01/27/17 01/28/17 01/28/17 23:59 11:59 23:59 Intake Total 2100 Balance 2100 Weight 165 kg 73.482 kg Intake: IV 2000 Normal Saline - 1,000 ml 2000 @ 1000 mls/hr IV ASDIR STA Rx#:[id number] IVPB 100 Other: Voiding Method Toilet Height 5 ft 3 in 5 ft 3 in Body Mass Index (BMI) 64.4 28.7 Weight Measurement Method Built in [facility] Weight Measurement Method Est/Stated by Patient CBC, BMP 01/28/17 11:48 01/28/17 11:48 EKG: SR, no ST changes, normal interval and axis A/56 y/o woman on daily ASA admitted with presumptive Upper GIB, acute on chronic anemia P/ -2PRBC with follow up CBC -NPO -protonix gtt -scd for dvt prophy -EGD in am -hold Coreg given acute bleeding -ok for floor pending f/u cbc and findings on EGD Efrain Cantu ACNP [id number]
[2017-01-28] MEDS ORDERED: PT OWN MED DRAWER 7, Y5N ONE (21:24)
[2017-01-28] MEDS: MUPIROCIN 2% TOPICAL OINTMENT FOR DECOLONIZATION NS SCH (21:33)
[2017-01-28] MEDS: CARVEDILOL 12.5 MG TABLET (FP) PO SCH (21:34)
[2017-01-28] MEDS: carBAMazepine 200 MG TABLET PO SCH ×2 (21:34→21:44)
[2017-01-28] MEDS: lamoTRIgine 25 MG TABLET PO SCH (21:34)
[2017-01-28] MEDS: lamoTRIgine 100 MG TABLET (FP) PO SCH (21:34)
[2017-01-28] MEDS: CHLORHEXIDINE GLUCONATE 4% CLEANSER FOR DECOLONIZATION TP SCH (21:34)
[2017-01-28] MEDS ORDERED: PATIENT'S OWN MEDICATION (NON-FORMULARY) (Lamotrigine [Lamictal] 150 MG) PO SCH (22:00)
[2017-01-29 01:25] LABS: BASOPHIL 0.4 % (0-2.0); EOSINOPHIL 1.6 % (0-4.5); MCH 24.4 pg (25.7-33.7); MCHC 32.4 g/dl (32.0-36.0); MEAN CELL VOLUME 75.4 fl (80-96); MEAN PLT VOLUME 7.4 fl (7.5-11.1); NEUTROPHILS 61.3 % (42.8-82.8); PLATELET COUNT 167 K/MM3 (134-434); RDW 21.8 % (11.6-15.6); WHITE BLOOD COUNT 6.5 K/mm3 (4.0-10.0)
[2017-01-29 01:44] LABS: BASOPHIL 0.3 % (0-2.0); EOSINOPHIL 1.6 % (0-4.5); MCH 24.2 pg (25.7-33.7); MCHC 32.5 g/dl (32.0-36.0); MEAN CELL VOLUME 74.5 fl (80-96); MEAN PLT VOLUME 7.1 fl (7.5-11.1); NEUTROPHILS 61.4 % (42.8-82.8); PLATELET COUNT 168 K/MM3 (134-434); RDW 21.8 % (11.6-15.6); WHITE BLOOD COUNT 7.2 K/mm3 (4.0-10.0)
[2017-01-29 05:39] LABS: BASOPHIL 0.4 % (0-2.0); EOSINOPHIL 1.9 % (0-4.5); MCH 25.5 pg (25.7-33.7); MCHC 32.9 g/dl (32.0-36.0); MEAN CELL VOLUME 77.3 fl (80-96); MEAN PLT VOLUME 7.5 fl (7.5-11.1); NEUTROPHILS 58.7 % (42.8-82.8); PLATELET COUNT 172 K/MM3 (134-434); RDW 22.4 % (11.6-15.6); WHITE BLOOD COUNT 6.4 K/mm3 (4.0-10.0)
[2017-01-29 06:06] LABS: ALK PHOS 68 U/L (45-117); ANION GAP 8 (8-16); BILIRUBIN,TOTAL 0.7 mg/dL (0.2-1.0); CALCIUM 7.9 mg/dL (8.5-10.1); CO2 24 mmol/L (21-32); CREATININE 0.7 mg/dL (0.55-1.02); GLUCOSE,RANDOM 84 mg/dL (74-106); MAGNESIUM 2.3 mg/dL (1.8-2.4); PHOSPHOROUS 2.2 mg/dL (2.5-4.9); SGOT/AST 25 U/L (15-37); SGPT/ALT 17 U/L (12-78); TOT PROT 5.6 g/dl (6.4-8.2)
[2017-01-29 06:10] LABS: TROPONIN I < 0.02 ng/ml (0.00-0.05)
[2017-01-29] MEDS: PANTOPRAZOLE SODIUM 80 MG in SODIUM CHLORIDE 100 ML IVPB SCH ×3 (06:37→22:18)
[2017-01-29] MEDS ORDERED: PT OWN MED DRAWER 7, Y5N ONE ×3 (09:24→21:00)
--- NOTE | 2017-01-29 10:01 | PN ---
Progress Note (short form) - Note Progress Note: Dr. Carver to document today. Patient awaiting EGD.
--- NOTE | 2017-01-29 10:45 | PN ---
Progress Note, Physician Chief Complaint: Ms Badillo says she is feeling much better. She says she has a lot more energy. She denies chest pain, shortness of breath, nausea/vomiting. - Current Medication List Current Medications: Active Medications Acetaminophen (Tylenol -) 650 mg PO Q4H PRN PRN Reason: FEVER OR PAIN Carbamazepine (Tegretol -) 200 mg PO BID COUNT INCLUDES [facility] Last Admin: 01/28/17 21:44 Dose: Not Given Carvedilol (Coreg -) 12.5 mg PO BID COUNT INCLUDES [facility] Last Admin: 01/28/17 21:34 Dose: 12.5 mg Chlorhexidine Gluconate (Hibiclens For Decolonization -) 1 applic TP HS COUNT INCLUDES [facility] Last Admin: 01/28/17 21:34 Dose: 1 applic Citalopram Hydrobromide (Celexa -) 40 mg PO DAILY [facility]CLUD[facility] Pantoprazole Sodium 80 mg/ (Sodium Chloride) 100 mls @ 10 mls/hr IVPB Q10H COUNT INCLUDES THE [facility] PRN Reason: 8 MG/HR Last Admin: 01/29/17 06:37 Dose: 10 mls/hr Sodium Chloride (Normal Saline -) 1,000 mls @ 100 mls/hr IV ASDIR COUNT INCLUDES [facility] Last Admin: 01/28/17 16:57 Dose: 100 mls/hr Lamotrigine (Lamictal -) 100 mg PO BID COUNT [facility]CLUD[facility] Last Admin: 01/28/17 21:34 Dose: 100 mg Lamotrigine (Lamictal -) 50 mg PO BID [facility]CLUD[facility] Last Admin: 01/28/17 21:34 Dose: 50 mg Mupirocin (Bactroban Ointment (For Decolonization) -) 1 applic NS BID [facility] Stop: 02/02/17 21:59 Last Admin: 01/28/17 21:33 Dose: 1 applic Nicotine (Nicoderm Patch -) 14 mg TD DAILY [facility] Last Admin: 01/28/17 17:18 Dose: 14 mg Ondansetron HCl (Zofran Injection) 4 mg IVPB Q6H PRN PRN Reason: NAUSEA - Objective Vital Signs: Vital Signs Temperature 98.6 F 01/29/17 01:39 Pulse Rate 75 01/29/17 08:00 Respiratory Rate 22 01/29/17 08:47 Blood Pressure 120/75 01/29/17 08:00 O2 Sat by Pulse Oximetry (%) 100 01/29/17 08:47 Constitutional: Yes: Well Nourished, No Distress, Calm Cardiovascular: Yes: Regular Rate and Rhythm. No: Gallop, Murmur, Rub Respiratory: Yes: Regular, CTA Bilaterally. No: Rales, Rhonchi, Wheezes Gastrointestinal: Yes: Normal Bowel Sounds, Soft. No: Distention, Tenderness Extremities: Yes: WNL Edema: No Labs: CBC, BMP 01/29/17 05:05 01/29/17 05:05 INR, PTT INR 1.12 (0.82-1.09) 01/28/17 14:42 Problem List - Problems (1) Gastrointestinal bleed Code(s): K92.2 - GASTROINTESTINAL HEMORRHAGE, UNSPECIFIED Qualifiers: GI bleed type/associated pathology: unspecified gastrointestinal hemorrhage type Qualified Code(s): K92.2 - Gastrointestinal hemorrhage, unspecified (2) Anemia Code(s): D64.9 - ANEMIA, UNSPECIFIED Qualifiers: Anemia type: other cause Other causes of anemia: acute posthemorrhagic Qualified Code(s): D62 - Acute posthemorrhagic anemia (3) Abdominal pain Code(s): R10.9 - UNSPECIFIED ABDOMINAL PAIN Qualifiers: Abdominal location: left lower quadrant Qualified Code(s): R10.32 - Left lower quadrant pain (4) Depression Code(s): F32.9 - MAJOR DEPRESSIVE DISORDER, SINGLE EPISODE, UNSPECIFIED Qualifiers: Depression Type: major depressive disorder Major depression recurrence : recurrent Psychotic features: without psychotic features (5) Chest pain Code(s): R07.9 - CHEST PAIN, UNSPECIFIED Assessment/Plan (1) Gastrointestinal bleed Assessment/Plan: -case d/w Dr Jimenez -planning for endoscopy today -continue protonix gtt -appears resolved currently Code(s): K92.2 - GASTROINTESTINAL HEMORRHAGE, UNSPECIFIED Qualifiers: GI bleed type/associated pathology: unspecified gastrointestinal hemorrhage type Qualified Code(s): K92.2 - Gastrointestinal hemorrhage, unspecified (2) Anemia Assessment/Plan: -proper response to transfusion -monitor Code(s): D64.9 - ANEMIA, UNSPECIFIED Qualifiers: Anemia type: other cause Other causes of anemia: acute posthemorrhagic Qualified Code(s): D62 - Acute posthemorrhagic anemia (3) Abdominal pain Assessment/Plan: -resolved Code(s): R10.9 - UNSPECIFIED ABDOMINAL PAIN Qualifiers: Abdominal location: left lower quadrant Qualified Code(s): R10.32 - Left lower quadrant pain (4) Depression Assessment/Plan: -continue home regimen Code(s): F32.9 - MAJOR DEPRESSIVE DISORDER, SINGLE EPISODE, UNSPECIFIED Qualifiers: Depression Type: major depressive disorder Major depression recurrence : recurrent Psychotic features: without psychotic features (5) Chest pain Assessment/Plan: -appreciate cardiology assistance -cardiac enzymes negative -secondary to anemia Code(s): R07.9 - CHEST PAIN, UNSPECIFIED
[2017-01-29] MEDS: NICOTINE 14 MG/24 HOURS TOPICAL PATCH TD SCH (10:47)
[2017-01-29] MEDS: lamoTRIgine 100 MG TABLET (FP) PO SCH ×2 (10:53→22:16)
[2017-01-29] MEDS: CITALOPRAM HYDROBROMIDE 20 MG TABLET (FP) PO SCH (10:54)
--- NOTE | 2017-01-29 10:54 | PN ---
GI Progress Note Subjective: No acute events S/P 3 U PRBC no melena evaluated by cardiology: noted QT prolongation - Objective Vital Signs: Vital Signs Temperature 97.7 F 01/29/17 10:00 Pulse Rate 84 01/29/17 10:00 Respiratory Rate 22 01/29/17 10:00 Blood Pressure 138/77 01/29/17 10:00 O2 Sat by Pulse Oximetry (%) 100 01/29/17 08:47 Constitutional: Calm Eyes: No: Sclera Icterus Cardiovascular: Yes: Regular Rate and Rhythm Respiratory: Yes: CTA Bilaterally Gastrointestinal Inspection: No: Distention ...Auscultate: Yes: Normoactive Bowel Sounds ...Palpate: No: Tenderness Edema: Yes Neurological: Yes: Alert, Oriented Labs: CBC, BMP 01/29/17 05:05 01/29/17 05:05 INR, PTT INR 1.12 (0.82-1.09) 01/28/17 14:42 Problem List - Problems (1) Gastrointestinal bleed Assessment/Plan: Suspicion for acute on chronic blood loos Continue protonix infusion Monitor CBC For EGD today Repeat EKG to reassess QT interval Code(s): K92.2 - GASTROINTESTINAL HEMORRHAGE, UNSPECIFIED Qualifiers: GI bleed type/associated pathology: unspecified gastrointestinal hemorrhage type Qualified Code(s): K92.2 - Gastrointestinal hemorrhage, unspecified
[2017-01-29] MEDS: CARVEDILOL 12.5 MG TABLET (FP) PO SCH ×2 (10:55→22:16)
[2017-01-29] MEDS: lamoTRIgine 25 MG TABLET PO SCH ×2 (10:56→22:17)
--- NOTE | 2017-01-29 12:13 | PN ---
Teaching Attending Note Name of Resident: Arsenio Singer ATTENDING PHYSICIAN STATEMENT I saw and evaluated the patient. I reviewed the resident's note and discussed the case with the resident. I agree with the resident's findings and plan as documented. SUBJECTIVE: Patient seen and examined in the ICU. Awake and alert. H&H improved after 3 units of pRBCs. No CP or SOB. No occult bleeding overnight. NPO for Endoscopic evaluation today Intake & Output 01/26/17 01/27/17 01/28/17 01/29/17 23:59 23:59 23:59 23:59 Intake Total 2740 970 Output Total 3 Balance 2740 967 Weight 162 lb Last Vital Signs Temp Pulse Resp BP Pulse Ox 97.7 F 72 22 148/80 100 01/29/17 10:00 01/29/17 11:40 01/29/17 11:40 01/29/17 11:40 01/29/17 08:47 Active Medications Acetaminophen (Tylenol -) 650 mg PO Q4H PRN PRN Reason: FEVER OR PAIN Carbamazepine (Tegretol -) 200 mg PO BID [facility] Last Admin: 01/28/17 21:44 Dose: Not Given Carvedilol (Coreg -) 12.5 mg PO BID [facility] Last Admin: 01/29/17 10:55 Dose: 12.5 mg Chlorhexidine Gluconate (Hibiclens For Decolonization -) 1 applic TP HS [facility] Last Admin: 01/28/17 21:34 Dose: 1 applic Citalopram Hydrobromide (Celexa -) 40 mg PO DAILY [facility] Last Admin: 01/29/17 10:54 Dose: 40 mg Pantoprazole Sodium 80 mg/ (Sodium Chloride) 100 mls @ 10 mls/hr IVPB Q10H [facility] PRN Reason: 8 MG/HR Last Admin: 01/29/17 06:37 Dose: 10 mls/hr Sodium Chloride (Normal Saline -) 1,000 mls @ 100 mls/hr IV ASDIR [facility] Last Admin: 01/28/17 16:57 Dose: 100 mls/hr Lamotrigine (Lamictal -) 100 mg PO BID [facility] Last Admin: 01/29/17 10:53 Dose: 100 mg Lamotrigine (Lamictal -) 50 mg PO BID [facility] Last Admin: 01/29/17 10:56 Dose: Not Given Mupirocin (Bactroban Ointment (For Decolonization) -) 1 applic NS BID [facility] Stop: 02/02/17 21:59 Last Admin: 01/28/17 21:33 Dose: 1 applic Nicotine (Nicoderm Patch -) 14 mg TD DAILY [facility] Last Admin: 01/29/17 10:47 Dose: 14 mg Constitutional: Yes: Well Nourished, No Distress Cardiovascular: Yes: Regular Rate and Rhythm. No: Gallop, Murmur, Rub Respiratory: Yes: Regular, CTA Bilaterally. No: Rales, Rhonchi, Wheezes Gastrointestinal: Yes: Normal Bowel Sounds, Soft. No: Distention, Tenderness Extremities: Yes: WNL Edema: No Labs: Laboratory Results - last 24 hr 01/28/17 01/28/17 01/28/17 11:48 11:48 11:48 WBC 7.9 RBC 2.85 L Hgb 6.2 L* Hct 19.8 L MCV 69.4 L MCH 21.6 L MCHC 31.2 L RDW 19.4 H Plt Count 227 MPV 7.1 L Neutrophils % 65.9 Lymphocytes % 26.4 Monocytes % 7.0 Eosinophils % 0.5 Basophils % 0.2 Hypochromic-Microcytic 2+ Anisocytosis 1+ Microcytosis 1+ INR PTT (Actin FS) Sodium 141 Potassium 4.4 Chloride 106 Carbon Dioxide 24 Anion Gap 11 BUN 31 H Creatinine 0.9 Creat Clearance w eGFR > 60 Random Glucose 109 H Calcium 8.3 L Phosphorus Magnesium Total Bilirubin 0.3 AST 25 ALT 20 Alkaline Phosphatase 74 Creatine Kinase Troponin I Total Protein 6.3 L Albumin 3.2 L Urine Color Ltyellow Urine Appearance Clear Urine pH 6.0 Ur Specific [place] 1.010 Urine Protein Negative Urine Glucose (UA) Negative Urine Ketones Negative Urine Blood Negative Urine Nitrite Negative Urine Bilirubin Negative Urine Urobilinogen Negative Ur Leukocyte Esterase Trace H Urine RBC None Urine WBC 2 Ur Epithelial Cells Rare Stool Occult Blood Opiates Screen Methadone Screen Barbiturate Screen Phencyclidine Screen Ur Amphetamines Screen MDMA (Ecstasy) Screen Benzodiazepines Screen Cocaine Screen U Marijuana (THC) Screen Blood Type Antibody Screen Crossmatch 01/28/17 01/28/17 01/28/17 11:48 12:38 12:38 WBC RBC Hgb Hct MCV MCH MCHC RDW Plt Count MPV Neutrophils % Lymphocytes % Monocytes % Eosinophils % Basophils % Hypochromic-Microcytic Anisocytosis Microcytosis INR PTT (Actin FS) Sodium Potassium Chloride Carbon Dioxide Anion Gap BUN Creatinine Creat Clearance w eGFR Random Glucose Calcium Phosphorus Magnesium Total Bilirubin AST ALT Alkaline Phosphatase Creatine Kinase Troponin I Total Protein Albumin Urine Color Urine Appearance Urine pH Ur Specific [place] Urine Protein Urine Glucose (UA) Urine Ketones Urine Blood Urine Nitrite Urine Bilirubin Urine Urobilinogen Ur Leukocyte Esterase Urine RBC Urine WBC Ur Epithelial Cells Stool Occult Blood Positive Opiates Screen Negative Methadone Screen Negative Barbiturate Screen Negative Phencyclidine Screen Negative Ur Amphetamines Screen Negative MDMA (Ecstasy) Screen Negative Benzodiazepines Screen Negative Cocaine Screen Positive U Marijuana (THC) Screen Negative Blood Type B POSITIVE Antibody Screen Negative Crossmatch 01/28/17 01/28/17 01/28/17 13:00 14:42 17:00 WBC RBC Hgb Hct MCV MCH MCHC RDW Plt Count MPV Neutrophils % Lymphocytes % Monocytes % Eosinophils % Basophils % Hypochromic-Microcytic Anisocytosis Microcytosis INR 1.12 PTT (Actin FS) 27.8 Sodium Potassium Chloride Carbon Dioxide Anion Gap BUN Creatinine Creat Clearance w eGFR Random Glucose Calcium Phosphorus Magnesium Total Bilirubin AST ALT Alkaline Phosphatase Creatine Kinase 78 Troponin I < 0.02 Total Protein Albumin Urine Color Urine Appearance Urine pH Ur Specific [place] Urine Protein Urine Glucose (UA) Urine Ketones Urine Blood Urine Nitrite Urine Bilirubin Urine Urobilinogen Ur Leukocyte Esterase Urine RBC Urine WBC Ur Epithelial Cells Stool Occult Blood Opiates Screen Methadone Screen Barbiturate Screen Phencyclidine Screen Ur Amphetamines Screen MDMA (Ecstasy) Screen Benzodiazepines Screen Cocaine Screen U Marijuana (THC) Screen Blood Type B POSITIVE Antibody Screen Crossmatch See Detail 01/29/17 01/29/17 01/29/17 01:00 01:30 05:05 WBC 6.5 7.2 6.4 RBC 2.72 L 3.05 L 3.52 L Hgb 6.6 L* 7.4 L D 9.0 L D Hct 20.5 L 22.7 L 27.2 L D MCV 75.4 L 74.5 L 77.3 L MCH 24.4 L 24.2 L 25.5 L MCHC 32.4 32.5 32.9 RDW 21.8 H D 21.8 H 22.4 H Plt Count 167 D 168 172 MPV 7.4 L 7.1 L 7.5 Neutrophils % 61.3 61.4 58.7 Lymphocytes % 28.2 28.0 30.0 Monocytes % 8.5 8.7 9.0 Eosinophils % 1.6 D 1.6 1.9 Basophils % 0.4 0.3 0.4 Hypochromic-Microcytic Anisocytosis Microcytosis INR PTT (Actin FS) Sodium Potassium Chloride Carbon Dioxide Anion Gap BUN Creatinine Creat Clearance w eGFR Random Glucose Calcium Phosphorus Magnesium Total Bilirubin AST ALT Alkaline Phosphatase Creatine Kinase Troponin I Total Protein Albumin Urine Color Urine Appearance Urine pH Ur Specific [place] Urine Protein Urine Glucose (UA) Urine Ketones Urine Blood Urine Nitrite Urine Bilirubin Urine Urobilinogen Ur Leukocyte Esterase Urine RBC Urine WBC Ur Epithelial Cells Stool Occult Blood Opiates Screen Methadone Screen Barbiturate Screen Phencyclidine Screen Ur Amphetamines Screen MDMA (Ecstasy) Screen Benzodiazepines Screen Cocaine Screen U Marijuana (THC) Screen Blood Type Antibody Screen Crossmatch 01/29/17 01/29/17 05:05 05:05 WBC RBC Hgb Hct MCV MCH MCHC RDW Plt Count MPV Neutrophils % Lymphocytes % Monocytes % Eosinophils % Basophils % Hypochromic-Microcytic Anisocytosis Microcytosis INR PTT (Actin FS) Sodium 143 Potassium 3.7 Chloride 111 H Carbon Dioxide 24 Anion Gap 8 BUN 15 D Creatinine 0.7 D Creat Clearance w eGFR > 60 Random Glucose 84 D Calcium 7.9 L Phosphorus 2.2 L Magnesium 2.3 Total Bilirubin 0.7 D AST 25 ALT 17 Alkaline Phosphatase 68 Creatine Kinase 124 Troponin I < 0.02 Total Protein 5.6 L Albumin 3.0 L Urine Color Urine Appearance Urine pH Ur Specific [place] Urine Protein Urine Glucose (UA) Urine Ketones Urine Blood Urine Nitrite Urine Bilirubin Urine Urobilinogen Ur Leukocyte Esterase Urine RBC Urine WBC Ur Epithelial Cells Stool Occult Blood Opiates Screen Methadone Screen Barbiturate Screen Phencyclidine Screen Ur Amphetamines Screen MDMA (Ecstasy) Screen Benzodiazepines Screen Cocaine Screen U Marijuana (THC) Screen Blood Type Antibody Screen Crossmatch Problem List - Problems (1) Gastrointestinal bleed Code(s): K92.2 - GASTROINTESTINAL HEMORRHAGE, UNSPECIFIED Qualifiers: GI bleed type/associated pathology: unspecified gastrointestinal hemorrhage type Qualified Code(s): K92.2 - Gastrointestinal hemorrhage, unspecified (2) Anemia Code(s): D64.9 - ANEMIA, UNSPECIFIED Qualifiers: Anemia type: other cause Other causes of anemia: acute posthemorrhagic Qualified Code(s): D62 - Acute posthemorrhagic anemia (3) Abdominal pain Code(s): R10.9 - UNSPECIFIED ABDOMINAL PAIN Qualifiers: Abdominal location: left lower quadrant Qualified Code(s): R10.32 - Left lower quadrant pain (4) Depression Code(s): F32.9 - MAJOR DEPRESSIVE DISORDER, SINGLE EPISODE, UNSPECIFIED Qualifiers: Depression Type: major depressive disorder Major depression recurrence : recurrent Psychotic features: without psychotic features (5) Chest pain Code(s): R07.9 - CHEST PAIN, UNSPECIFIED PLAN: Normal transfusion thresholds O2 as needed Follow CBC PPI Monitor for withdrawal Dr Covington Critical care time spent in reviewing chart, evaluating patient and formulating plan 35 min
--- NOTE | 2017-01-29 12:36 | PN ---
Physical Exam: SUBJECTIVE: Patient seen and examined. She feels better today. She still complains of lower abdominal pain. No nausea, vomiting, melena overnight. s/p 3 units of PRBC. no dizziness or headache OBJECTIVE: Vital Signs Temperature 97.7 F 01/29/17 10:00 Pulse Rate 72 01/29/17 11:40 Respiratory Rate 22 01/29/17 11:40 Blood Pressure 148/80 01/29/17 11:40 O2 Sat by Pulse Oximetry (%) 100 01/29/17 08:47 GENERAL: The patient is awake, alert, and fully oriented, in no acute distress. HEAD: Normal with no signs of trauma. EYES: extraocular movements intact, sclera anicteric, conjunctiva clear. No ptosis. NECK: Trachea midline, full range of motion, supple. LUNGS: Breath sounds equal, clear to auscultation bilaterally, no wheezes, no crackles, no accessory muscle use. HEART: Regular rate and rhythm, S1, S2 without murmur, rub or gallop. ABDOMEN: Soft, tender to palpation in lower quadrants , nondistended, no guarding, no rebound. NEUROLOGICAL: Cranial nerves II through X grossly intact. Normal speech, gait not observed. PSYCH: Normal mood, normal affect. SKIN: Warm, dry, normal turgor, no rashes or lesions noted Laboratory Results - last 24 hr 01/28/17 01/28/17 01/29/17 14:42 17:00 01:00 WBC 6.5 RBC 2.72 L Hgb 6.6 L* Hct 20.5 L MCV 75.4 L MCH 24.4 L MCHC 32.4 RDW 21.8 H D Plt Count 167 D MPV 7.4 L Neutrophils % 61.3 Lymphocytes % 28.2 Monocytes % 8.5 Eosinophils % 1.6 D Basophils % 0.4 INR 1.12 PTT (Actin FS) 27.8 Sodium Potassium Chloride Carbon Dioxide Anion Gap BUN Creatinine Creat Clearance w eGFR Random Glucose Calcium Phosphorus Magnesium Total Bilirubin AST ALT Alkaline Phosphatase Creatine Kinase 78 Troponin I < 0.02 Total Protein Albumin 01/29/17 01/29/17 01/29/17 01:30 05:05 05:05 WBC 7.2 6.4 RBC 3.05 L 3.52 L Hgb 7.4 L D 9.0 L D Hct 22.7 L 27.2 L D MCV 74.5 L 77.3 L MCH 24.2 L 25.5 L MCHC 32.5 32.9 RDW 21.8 H 22.4 H Plt Count 168 172 MPV 7.1 L 7.5 Neutrophils % 61.4 58.7 Lymphocytes % 28.0 30.0 Monocytes % 8.7 9.0 Eosinophils % 1.6 1.9 Basophils % 0.3 0.4 INR PTT (Actin FS) Sodium 143 Potassium 3.7 Chloride 111 H Carbon Dioxide 24 Anion Gap 8 BUN 15 D Creatinine 0.7 D Creat Clearance w eGFR > 60 Random Glucose 84 D Calcium 7.9 L Phosphorus 2.2 L Magnesium 2.3 Total Bilirubin 0.7 D AST 25 ALT 17 Alkaline Phosphatase 68 Creatine Kinase Troponin I Total Protein 5.6 L Albumin 3.0 L 01/29/17 05:05 WBC RBC Hgb Hct MCV MCH MCHC RDW Plt Count MPV Neutrophils % Lymphocytes % Monocytes % Eosinophils % Basophils % INR PTT (Actin FS) Sodium Potassium Chloride Carbon Dioxide Anion Gap BUN Creatinine Creat Clearance w eGFR Random Glucose Calcium Phosphorus Magnesium Total Bilirubin AST ALT Alkaline Phosphatase Creatine Kinase 124 Troponin I < 0.02 Total Protein Albumin Active Medications Generic Name Dose Route Start Last Admin Trade Name Freq PRN Reason Stop Dose Admin Acetaminophen 650 mg 01/28/17 15:53 Tylenol - PO Q4H PRN FEVER OR PAIN Carbamazepine 200 mg 01/28/17 22:00 01/28/17 21:44 Tegretol - PO Not Given BID [facility] Carvedilol 12.5 mg 01/28/17 22:00 01/29/17 10:55 Coreg - PO 12.5 mg BID [facility] Administration Chlorhexidine Gluconate 1 applic 01/28/17 22:00 01/28/17 21:34 Hibiclens For Decolonization - TP 1 applic HS [facility] Administration Citalopram Hydrobromide 40 mg 01/29/17 10:00 01/29/17 10:54 Celexa - PO 40 mg DAILY [facility] Administration Pantoprazole Sodium 80 mg/ 100 mls @ 10 mls/hr 01/28/17 16:35 01/29/17 06:37 Sodium Chloride IVPB 10 mls/hr Q10H [facility] Administration 8 MG/HR Sodium Chloride 1,000 mls @ 100 mls/hr 01/28/17 16:00 01/28/17 16:57 Normal Saline - IV 100 mls/hr ASDIR [facility] Administration Lamotrigine 100 mg 01/28/17 22:00 01/29/17 10:53 Lamictal - PO 100 mg BID [facility] Administration Lamotrigine 50 mg 01/28/17 22:00 01/29/17 10:56 Lamictal - PO Not Given BID [facility] Mupirocin 1 applic 01/28/17 22:00 01/28/17 21:33 Bactroban Ointment (For Decolonization) - NS 02/02/17 21:59 1 applic BID [facility] Administration Nicotine 14 mg 01/28/17 16:30 01/29/17 10:47 Nicoderm Patch - TD 14 mg DAILY [facility] Administration ASSESSMENT/PLAN: 56 yo f w/ PMH chronic anemia, HTN presents to the ER complaining of a 1 day history of hematemasis and melena x4. She had one episode of melena in the ICU. She was admitted to the ICU for further treatment due to suspected upper GI bleed. Neuro -patient is alert and oriented cardio -PMH hypertension -c/w coreg 12.5mg PO -acute on chronic anemia likely 2/2 upper GI bleed -patient is a regular ASA user -s/p 3 units PRBC; Hb is 9.0. -pt received a total of 3 units PRBC this visit -will monitor Hb and transfuse as indicated. abdominal -suspected upper GI bleed -for EGD today -f/u EGD results FEN -NS at 100 -will continue to monitor lytes -NPO for EGD Dispo -continue to monitor in ICU Problem List - Problems (1) Abdominal pain Code(s): R10.9 - UNSPECIFIED ABDOMINAL PAIN Qualifiers: Abdominal location: left lower quadrant Qualified Code(s): R10.32 - Left lower quadrant pain (2) Anemia Code(s): D64.9 - ANEMIA, UNSPECIFIED Qualifiers: Anemia type: other cause Other causes of anemia: acute posthemorrhagic Qualified Code(s): D62 - Acute posthemorrhagic anemia (3) Gastrointestinal bleed Code(s): K92.2 - GASTROINTESTINAL HEMORRHAGE, UNSPECIFIED Qualifiers: GI bleed type/associated pathology: unspecified gastrointestinal hemorrhage type Qualified Code(s): K92.2 - Gastrointestinal hemorrhage, unspecified (4) Hypertension Code(s): I10 - ESSENTIAL (PRIMARY) HYPERTENSION Visit type - Emergency Visit Emergency Visit: Yes ED Registration Date: 01/28/17 Care time: The patient presented to the Emergency Department on the above date and was hospitalized for further evaluation of their emergent condition. - New Patient This patient is new to me today: Yes Date on this admission: 01/29/17 - Critical Care Critical Care patient: Yes Total Critical Care Time (in minutes): 35 Critical Care Statement: The care of this patient involved high complexity decision making to prevent further life threatening deterioration of the patient 's condition and/or to evalute & treat vital organ system(s) failure or risk of failure.
--- NOTE | 2017-01-29 14:12 | PN ---
Progress Note (short form) - Note Progress Note: GI procedure note. Please see scanned EGD report. Bleeding appears to come from Elise- Mcbride tear just distal to large Hiatal hernia. Patient also have erosive gastritis and duodenitis. Plan Start Pantoprazole drip. Start clear liquid Get CBC in morning. Get Sr iron, TIBC, Ferritin. Dr. Mcleod will be covering this weekend.
[2017-01-29] MEDS ORDERED: PROCHLORPERAZINE INJECTION 10 MG/2 ML VIAL IVPB PRN (14:43)
[2017-01-29] MEDS: MUPIROCIN 2% TOPICAL OINTMENT FOR DECOLONIZATION NS SCH ×2 (16:23→22:16)
[2017-01-29] MEDS: carBAMazepine 200 MG TABLET PO SCH ×2 (16:23→22:18)
--- NOTE | 2017-01-29 17:36 | PN ---
Progress Note (short form) - Note Progress Note: CC: CP S: had endoscopy today, notable for jose platt tear. patient feels better today. no cp, palps, dizziness, sob. Current Medications Acetaminophen (Tylenol -) 650 mg PO Q4H PRN PRN Reason: FEVER OR PAIN Al Hydroxide/Mg Hydroxide (Mylanta Suspension -) 30 ml PO Q6HPO [facility] Carbamazepine (Tegretol -) 200 mg PO BID [facility] Last Admin: 01/29/17 16:23 Dose: 200 mg Carvedilol (Coreg -) 12.5 mg PO BID [facility] Last Admin: 01/29/17 10:55 Dose: 12.5 mg Chlorhexidine Gluconate (Hibiclens For Decolonization -) 1 applic TP HS [facility] Last Admin: 01/28/17 21:34 Dose: 1 applic Citalopram Hydrobromide (Celexa -) 40 mg PO DAILY [facility] Last Admin: 01/29/17 10:54 Dose: 40 mg Pantoprazole Sodium 80 mg/ (Sodium Chloride) 100 mls @ 10 mls/hr IVPB Q10H [facility] PRN Reason: 8 MG/HR Last Admin: 01/29/17 16:23 Dose: 10 mls/hr Sodium Chloride (Normal Saline -) 1,000 mls @ 100 mls/hr IV ASDIR [facility] Last Admin: 01/28/17 16:57 Dose: 100 mls/hr Lamotrigine (Lamictal -) 100 mg PO BID [facility] Last Admin: 01/29/17 10:53 Dose: 100 mg Lamotrigine (Lamictal -) 50 mg PO BID [facility] Last Admin: 01/29/17 10:56 Dose: Not Given Mupirocin (Bactroban Ointment (For Decolonization) -) 1 applic NS BID [facility] Stop: 02/02/17 21:59 Last Admin: 01/29/17 16:23 Dose: 1 applic Nicotine (Nicoderm Patch -) 14 mg TD DAILY [facility] Last Admin: 01/29/17 10:47 Dose: 14 mg Prochlorperazine Edisylate (Compazine Injection -) 10 mg IVPB Q4H PRN PRN Reason: NAUSEA AND/OR VOMITING Vital Signs - 24 hr 01/28/17 01/28/17 01/28/17 18:07 20:00 21:00 Temperature 97.5 F L Pulse Rate 87 84 Respiratory 22 14 14 Rate Blood Pressure 130/75 143/73 O2 Sat by Pulse 100 Oximetry (%) 01/28/17 01/29/17 01/29/17 22:00 00:00 01:39 Temperature 98.6 F Pulse Rate 80 80 81 Respiratory 15 27 H 24 Rate Blood Pressure 127/80 104/71 120/66 O2 Sat by Pulse Oximetry (%) 01/29/17 01/29/17 01/29/17 04:00 06:00 08:00 Temperature Pulse Rate 77 74 75 Respiratory 21 22 22 Rate Blood Pressure 118/79 121/70 120/75 O2 Sat by Pulse Oximetry (%) 01/29/17 01/29/17 01/29/17 08:47 10:00 11:40 Temperature 97.7 F Pulse Rate 84 72 Respiratory 22 22 22 Rate Blood Pressure 138/77 148/80 O2 Sat by Pulse 100 Oximetry (%) Intake & Output 01/27/17 01/28/17 01/29/17 01/30/17 07:59 07:59 07:59 07:59 Intake Total 3710 1290 Output Total 3 2 Balance 3707 1288 Weight 162 lb nad, calm jvd flat, neck supple ctab, nl effort rrr nl s1, s2 no mrg + bs soft nt nd ext without e/c/c + dp/pt aaox3 no jaundice, diaphoresis no carotid bruits CBC, BMP 01/29/17 05:05 01/29/17 05:05 Laboratory Tests 01/28/17 01/29/17 01/29/17 17:00 05:05 05:05 Calcium 7.9 L Phosphorus 2.2 L Magnesium 2.3 Total Bilirubin 0.7 D AST 25 ALT 17 Alkaline Phosphatase 68 Troponin I < 0.02 < 0.02 Albumin 3.0 L ekg: nsr, prolonged qtc, non-specific diffuse t wave ab tele: sr abd ct: hiatal hernia, no acute pathology. 56 yo smoker/cocaine user with h/o HTN, depression, recent anemia for which she was supposed to have cscope eval in July who p/w abdominal pain and bleeding. CP - atypical for cardiac pain, lkely 2/2 GI issue/jose platt tear. reevaluate for recurrence now that anemia has been corrected and after tx for GI conditions. - counseled on dangers of cocaine and bb use. patient endorses understanding, but denies using cocaine. States she has been on coreg for years. prolonged qtc - on longstanding citalopram. caution with other qt prolonging meds like zofran , try alternative. - aggressive lyte repletion prn - tele benign - repeat ekg tomorrow am to assess for improvement. If qt normalizes, will not need to be transferred to tele floor once ready to leave ICU. tob -cessation counseling htn - controlled on coreg. ? safety with cocaine use as above but pt denies. - may benefit from being weaned off coreg as outpatient and transitioned to alternative such as norvasc. Will defer to pmd. cct 35 min
[2017-01-29] MEDS: MAG HYDROX/AL HYDROX/SIMETH 30 ML UNIT-DOSE CUP PO SCH (17:53)
[2017-01-29] MEDS: SODIUM CHLORIDE 1,000 ML IV SCH (17:55)
[2017-01-29] MEDS ORDERED: MAG HYDROX/AL HYDROX/SIMETH 355 ML ORAL.SUSP PO SCH (18:00)
[2017-01-29] MEDS ORDERED: POTASSIUM CHLORIDE ORAL LIQUID 20 MEQ/15 ML PO ONE (18:50)
[2017-01-29] MEDS: CHLORHEXIDINE GLUCONATE 4% CLEANSER FOR DECOLONIZATION TP SCH (22:16)
[2017-01-30] MEDS: SODIUM CHLORIDE 1,000 ML IV SCH ×2 (05:00→15:00)
[2017-01-30] MEDS: MAG HYDROX/AL HYDROX/SIMETH 30 ML UNIT-DOSE CUP PO SCH ×4 (05:54→17:44)
[2017-01-30 05:59] LABS: BASOPHIL 0.4 % (0-2.0); EOSINOPHIL 2.2 % (0-4.5); MCH 25.7 pg (25.7-33.7); MCHC 33.2 g/dl (32.0-36.0); MEAN CELL VOLUME 77.5 fl (80-96); MEAN PLT VOLUME 7.7 fl (7.5-11.1); NEUTROPHILS 61.3 % (42.8-82.8); PLATELET COUNT 166 K/MM3 (134-434)
[2017-01-30 06:15] LABS: ANION GAP 6 (8-16); CALCIUM 7.9 mg/dL (8.5-10.1); CO2 25 mmol/L (21-32); CREATININE 0.7 mg/dL (0.55-1.02); GLUCOSE,RANDOM 88 mg/dL (74-106); MAGNESIUM 2.2 mg/dL (1.8-2.4); PHOSPHOROUS 2.4 mg/dL (2.5-4.9)
--- NOTE | 2017-01-30 06:53 | PN ---
Progress Note (short form) - Note Progress Note: SUBJECTIVE: Patient seen and examined in the ICU. 24HR -EGD with jose-platt tear -holding on to PRBC, hbg 9-->8.6 -now passing green/brown stool, no further melena Vital Signs Temp 97.7 F 01/30/17 06:00 Pulse 79 01/30/17 06:00 Resp 20 01/30/17 06:00 BP 136/81 01/30/17 06:00 Pulse Ox 96 01/29/17 21:00 Intake & Output 01/29/17 01/29/17 01/30/17 11:59 23:59 11:59 Intake Total 970 2280 970 Output Total 3 2 Balance 967 2278 970 Weight 74.48 kg Intake: IV 600 1440 770 Normal Saline - 1,000 ml 600 @ 1000 mls/hr IV [facility]IR [facility] Rx#:[id number] Normal Saline - 1,000 ml 1300 700 @ 100 mls/hr IV [facility]IR [facility] Rx#:[id number] PROTONIX GTT 40 70 IVPB 70 50 Oral 790 200 Packed Cells 300 Output: Urine 3 2 Void 3 2 Other: Voiding Method Toilet Toilet Toilet # Unmeasured Voids Void 3 3 Bowel Movement Yes Yes: lg blk/br liq # Bowel Movements 1 Weight Measurement Method Built in [facility] Active Medications Acetaminophen (Tylenol -) 650 mg PO Q4H PRN PRN Reason: FEVER OR PAIN Al Hydroxide/Mg Hydroxide (Mylanta Oral Suspension -) 30 ml PO Q6HPO [facility] Last Admin: 01/30/17 05:54 Dose: 30 ml Carbamazepine (Tegretol -) 200 mg PO BID [facility] Last Admin: 01/29/17 22:18 Dose: 200 mg Carvedilol (Coreg -) 12.5 mg PO BID [facility] Last Admin: 01/29/17 22:16 Dose: 12.5 mg Chlorhexidine Gluconate (Hibiclens For Decolonization -) 1 applic TP HS [facility] Last Admin: 01/29/17 22:16 Dose: 1 applic Citalopram Hydrobromide (Celexa -) 40 mg PO DAILY [facility] Last Admin: 01/29/17 10:54 Dose: 40 mg Pantoprazole Sodium 80 mg/ (Sodium Chloride) 100 mls @ 10 mls/hr IVPB Q10H [facility] PRN Reason: 8 MG/HR Last Admin: 01/29/17 22:18 Dose: 10 mls/hr Sodium Chloride (Normal Saline -) 1,000 mls @ 100 mls/hr IV ASDIR [facility] Last Admin: 01/30/17 05:00 Dose: 100 mls/hr Lamotrigine (Lamictal -) 100 mg PO BID [facility] Last Admin: 01/29/17 22:16 Dose: 100 mg Lamotrigine (Lamictal -) 50 mg PO BID [facility] Last Admin: 01/29/17 22:17 Dose: 50 mg Mupirocin (Bactroban Ointment (For Decolonization) -) 1 applic NS BID [facility] Stop: 02/02/17 21:59 Last Admin: 01/29/17 22:16 Dose: 1 applic Nicotine (Nicoderm Patch -) 14 mg TD DAILY [facility] Last Admin: 01/29/17 10:47 Dose: 14 mg Prochlorperazine Edisylate (Compazine Injection -) 10 mg IVPB Q4H PRN PRN Reason: NAUSEA AND/OR VOMITING Constitutional: Yes: Well Nourished, No Distress Cardiovascular: Yes: Regular Rate and Rhythm. No: Gallop, Murmur, Rub Respiratory: Yes: Regular, CTA Bilaterally. No: Rales, Rhonchi, Wheezes Gastrointestinal: Yes: Normal Bowel Sounds, Soft. No: Distention, Tenderness Extremities: Yes: WNL Edema: No CBC,CMP WBC 6.0 K/mm3 (4.0-10.0) 01/30/17 05:10 RBC 3.33 M/mm3 (3.60-5.2) L 01/30/17 05:10 Hgb 8.6 GM/dL (10.7-15.3) L 01/30/17 05:10 Hct 25.8 % (32.4-45.2) L 01/30/17 05:10 MCV 77.5 fl (80-96) L 01/30/17 05:10 MCH 25.7 pg (25.7-33.7) 01/30/17 05:10 MCHC 33.2 g/dl (32.0-36.0) 01/30/17 05:10 RDW 22.0 % (11.6-15.6) H 01/30/17 05:10 Plt Count 166 K/MM3 (134-434) 01/30/17 05:10 MPV 7.7 fl (7.5-11.1) 01/30/17 05:10 Neutrophils % 61.3 % (42.8-82.8) 01/30/17 05:10 Lymphocytes % 27.1 % (8-40) 01/30/17 05:10 Monocytes % 9.0 % (3.8-10.2) 01/30/17 05:10 Eosinophils % 2.2 % (0-4.5) 01/30/17 05:10 Basophils % 0.4 % (0-2.0) 01/30/17 05:10 Hypochromic-Microcytic 2+ 01/28/17 11:48 Anisocytosis 1+ 01/28/17 11:48 Microcytosis 1+ 01/28/17 11:48 Sodium 145 mmol/L (136-145) 01/30/17 05:10 Potassium 4.1 mmol/L (3.5-5.1) 01/30/17 05:10 Chloride 114 mmol/L (98-107) H 01/30/17 05:10 Carbon Dioxide 25 mmol/L (21-32) 01/30/17 05:10 Anion Gap 6 (8-16) L 01/30/17 05:10 BUN 6 mg/dL (7-18) L D 01/30/17 05:10 Creatinine 0.7 mg/dL (0.55-1.02) 01/30/17 05:10 Creat Clearance w eGFR > 60 (>60) 01/29/17 05:05 Random Glucose 88 mg/dL (74-106) 01/30/17 05:10 Calcium 7.9 mg/dL (8.5-10.1) L 01/30/17 05:10 Phosphorus 2.4 mg/dL (2.5-4.9) L 01/30/17 05:10 Magnesium 2.2 mg/dL (1.8-2.4) 01/30/17 05:10 Ferritin 18.830 ng/ml (6.9-282.5) 01/30/17 05:10 Total Bilirubin 0.7 mg/dL (0.2-1.0) D 01/29/17 05:05 AST 25 U/L (15-37) 01/29/17 05:05 ALT 17 U/L (12-78) 01/29/17 05:05 Alkaline Phosphatase 68 U/L (45-117) 01/29/17 05:05 Creatine Kinase 124 IU/L (26-192) 01/29/17 05:05 Troponin I < 0.02 ng/ml (0.00-0.05) 01/29/17 05:05 Total Protein 5.6 g/dl (6.4-8.2) L 01/29/17 05:05 Albumin 3.0 g/dl (3.4-5.0) L 01/29/17 05:05 Problem List - Problems (1) Gastrointestinal bleed Code(s): K92.2 - GASTROINTESTINAL HEMORRHAGE, UNSPECIFIED Qualifiers: GI bleed type/associated pathology: unspecified gastrointestinal hemorrhage type Qualified Code(s): K92.2 - Gastrointestinal hemorrhage, unspecified (2) Anemia Code(s): D64.9 - ANEMIA, UNSPECIFIED Qualifiers: Anemia type: other cause Other causes of anemia: acute posthemorrhagic Qualified Code(s): D62 - Acute posthemorrhagic anemia (3) Abdominal pain Code(s): R10.9 - UNSPECIFIED ABDOMINAL PAIN Qualifiers: Abdominal location: left lower quadrant Qualified Code(s): R10.32 - Left lower quadrant pain (4) Depression Code(s): F32.9 - MAJOR DEPRESSIVE DISORDER, SINGLE EPISODE, UNSPECIFIED Qualifiers: Depression Type: major depressive disorder Major depression recurrence : recurrent Psychotic features: without psychotic features (5) Chest pain Code(s): R07.9 - CHEST PAIN, UNSPECIFIED PLAN: clears, advance as per GI Normal transfusion thresholds O2 as needed Follow CBC PPI Monitor for withdrawal Efrain Cantu ACNP [id number]
--- NOTE | 2017-01-30 08:33 | EKG ---
Test Reason : Blood Pressure : / mmHG Vent. Rate : 073 BPM Atrial Rate : 073 BPM P-R Int : 168 ms QRS Dur : 078 ms QT Int : 458 ms P-R-T Axes : 050 064 069 degrees QTc Int : 504 ms NORMAL SINUS RHYTHM PROLONGED QT ABNORMAL ECG WHEN COMPARED WITH ECG OF 28-JAN-2017 12:18, NON-SPECIFIC CHANGE IN ST SEGMENT IN INFERIOR LEADS NONSPECIFIC T WAVE ABNORMALITY NO LONGER EVIDENT IN INFERIOR LEADS NONSPECIFIC T WAVE ABNORMALITY NO LONGER EVIDENT IN ANTEROLATERAL LEADS Confirmed by TRACY TRAORE, CECILIA ([id number]) on 01/30/2017 8:33:11 AM Referred By: PADMINI LINDSEY Confirmed By:CECILIA MOLINA MD
[2017-01-30 08:45] LABS: ANISOCYTOSIS 2+
[2017-01-30] MEDS ORDERED: PT OWN MED DRAWER 7, Y5N ONE ×3 (09:34→21:54)
[2017-01-30] MEDS: NICOTINE 14 MG/24 HOURS TOPICAL PATCH TD SCH (09:39)
[2017-01-30] MEDS: carBAMazepine 200 MG TABLET PO SCH ×2 (09:39→22:11)
[2017-01-30] MEDS: lamoTRIgine 25 MG TABLET PO SCH ×2 (09:40→22:11)
[2017-01-30] MEDS: lamoTRIgine 100 MG TABLET (FP) PO SCH ×2 (09:40→22:11)
[2017-01-30] MEDS: CITALOPRAM HYDROBROMIDE 20 MG TABLET (FP) PO SCH (09:40)
[2017-01-30] MEDS: CARVEDILOL 12.5 MG TABLET (FP) PO SCH ×2 (09:41→22:11)
[2017-01-30] MEDS: PANTOPRAZOLE SODIUM 80 MG in SODIUM CHLORIDE 100 ML IVPB SCH ×2 (10:00→17:46)
[2017-01-30] MEDS: MUPIROCIN 2% TOPICAL OINTMENT FOR DECOLONIZATION NS SCH ×2 (11:23→22:12)
--- NOTE | 2017-01-30 11:36 | PN ---
Progress Note (short form) - Note Progress Note: CC: CP S: no cp, palps, dizziness, sob. Current Medications Generic Name Dose Route Start Last Admin Trade Name Freq PRN Reason Stop Dose Admin Acetaminophen 650 mg 01/28/17 15:53 Tylenol - PO Q4H PRN FEVER OR PAIN Al Hydroxide/Mg Hydroxide 30 ml 01/29/17 18:00 01/30/17 11:24 Mylanta Oral Suspension - PO 30 ml Q6HPO [facility] Administration Carbamazepine 200 mg 01/28/17 22:00 01/30/17 09:39 Tegretol - PO 200 mg BID [facility] Administration Carvedilol 12.5 mg 01/28/17 22:00 01/30/17 09:41 Coreg - PO 12.5 mg BID [facility] Administration Chlorhexidine Gluconate 1 applic 01/28/17 22:00 01/29/17 22:16 Hibiclens For Decolonization - TP 1 applic HS [facility] Administration Citalopram Hydrobromide 40 mg 01/29/17 10:00 01/30/17 09:40 Celexa - PO 40 mg DAILY [facility] Administration Pantoprazole Sodium 80 mg/ 100 mls @ 10 mls/hr 01/28/17 16:35 01/29/17 22:18 Sodium Chloride IVPB 10 mls/hr Q10H [facility] Administration 8 MG/HR Sodium Chloride 1,000 mls @ 100 mls/hr 01/28/17 16:00 01/30/17 05:00 Normal Saline - IV 100 mls/hr [facility] Administration Lamotrigine 100 mg 01/28/17 22:00 01/30/17 09:40 Lamictal - PO 100 mg BID [facility] Administration Lamotrigine 50 mg 01/28/17 22:00 01/30/17 09:40 Lamictal - PO 50 mg BID [facility] Administration Mupirocin 1 applic 01/28/17 22:00 01/30/17 11:23 Bactroban Ointment (For Decolonization) - NS 02/02/17 21:59 1 applic BID [facility] Administration Nicotine 14 mg 01/28/17 16:30 01/30/17 09:39 Nicoderm Patch - TD 14 mg DAILY [facility] Administration Prochlorperazine Edisylate 10 mg 01/29/17 14:43 Compazine Injection - IVPB Q4H PRN NAUSEA AND/OR VOMITING Vital Signs Period Temp Pulse Resp BP Sys/Jorge Pulse Ox Last 24 Hr 97.7 F-98.1 F 70-79 18-25 119-148/70-88 96 nad, calm jvd flat, neck supple ctab, nl effort rrr nl s1, s2 no mrg + bs soft nt nd ext without e/c/c aaox3 no jaundice, diaphoresis CBC, BMP 01/30/17 05:10 01/30/17 05:10 ekg: nsr, prolonged qtc, non-specific diffuse t wave ab tele: sr abd ct: hiatal hernia, no acute pathology. a/p: 56 yo smoker/cocaine user with h/o HTN, depression, recent anemia for which she was supposed to have cscope eval in July who p/w abdominal pain and bleeding. CP - atypical for cardiac pain, lkely 2/2 GI issue/jose platt tear. reevaluate for recurrence now that anemia has been corrected and after tx for GI conditions. - counseled on dangers of cocaine and bb use. patient endorses understanding, but denies using cocaine. States she has been on coreg for years. prolonged qtc - on longstanding citalopram. caution with other qt prolonging meds like zofran , try alternative. - aggressive lyte repletion prn - tele benign - monitor ecg, if qt normalizes, will not need to be transferred to tele floor once ready to leave ICU. tob -cessation counseling htn - controlled on coreg. ? safety with cocaine use as above but pt denies.
--- NOTE | 2017-01-30 12:26 | PN ---
Progress Note, Physician Chief Complaint: feels better; no abdominal pain; tolerating liquids. History of Present Illness: Patient admitted with critical anemia 6.2 Gm and GI bleed with EGD showing Elise Mcbride tear and duodenitis. Required 3 units pc and hemoglobin 8.6 Gm today. Was 9GM yesterday. For Colonoscopy Wednesday. VS stable. Cardiology saw patient and said when QT stabilizes can go to the regular floor but QT increased from 410 to 438. Will follow. - Current Medication List Current Medications: Active Medications Acetaminophen (Tylenol -) 650 mg PO Q4H PRN PRN Reason: FEVER OR PAIN Al Hydroxide/Mg Hydroxide (Mylanta Oral Suspension -) 30 ml PO Q6HPO [facility] Last Admin: 01/30/17 11:24 Dose: 30 ml Carbamazepine (Tegretol -) 200 mg PO BID [facility] Last Admin: 01/30/17 09:39 Dose: 200 mg Carvedilol (Coreg -) 12.5 mg PO BID [facility] Last Admin: 01/30/17 09:41 Dose: 12.5 mg Chlorhexidine Gluconate (Hibiclens For Decolonization -) 1 applic TP HS [facility] Last Admin: 01/29/17 22:16 Dose: 1 applic Citalopram Hydrobromide (Celexa -) 40 mg PO DAILY [facility] Last Admin: 01/30/17 09:40 Dose: 40 mg Pantoprazole Sodium 80 mg/ (Sodium Chloride) 100 mls @ 10 mls/hr IVPB Q10H [facility] PRN Reason: 8 MG/HR Last Admin: 01/29/17 22:18 Dose: 10 mls/hr Sodium Chloride (Normal Saline -) 1,000 mls @ 100 mls/hr IV ASDIR [facility] Last Admin: 01/30/17 05:00 Dose: 100 mls/hr Lamotrigine (Lamictal -) 100 mg PO BID [facility] Last Admin: 01/30/17 09:40 Dose: 100 mg Lamotrigine (Lamictal -) 50 mg PO BID [facility] Last Admin: 01/30/17 09:40 Dose: 50 mg Mupirocin (Bactroban Ointment (For Decolonization) -) 1 applic NS BID [facility] Stop: 02/02/17 21:59 Last Admin: 01/30/17 11:23 Dose: 1 applic Nicotine (Nicoderm Patch -) 14 mg TD DAILY [facility] Last Admin: 01/30/17 09:39 Dose: 14 mg Prochlorperazine Edisylate (Compazine Injection -) 10 mg IVPB Q4H PRN PRN Reason: NAUSEA AND/OR VOMITING - Objective Vital Signs: Vital Signs Temperature 97.7 F 01/30/17 06:00 Pulse Rate 72 01/30/17 10:00 Respiratory Rate 18 01/30/17 10:00 Blood Pressure 127/88 01/30/17 10:00 O2 Sat by Pulse Oximetry (%) 96 01/29/17 21:00 Constitutional: Yes: Calm. No: Pallor Eyes: Yes: Conjunctiva Clear Cardiovascular: Yes: Regular Rate and Rhythm Respiratory: Yes: Regular. No: SOB Gastrointestinal: Yes: Soft, Hyperactive Bowel Sounds. No: Tenderness Genitourinary: No: Bay Present Edema: No Edema: LUE: Trace Neurological: Yes: Alert, Oriented Labs: CBC, BMP 01/30/17 05:10 01/30/17 05:10 INR, PTT INR 1.12 (0.82-1.09) 01/28/17 14:42 Problem List - Problems (1) Anemia Assessment/Plan: Hb 9GM to 8.6 GM Ferritin borderline normal. To follow. Code(s): D64.9 - ANEMIA, UNSPECIFIED Qualifiers: Anemia type: other cause Other causes of anemia: acute posthemorrhagic Qualified Code(s): D62 - Acute posthemorrhagic anemia (2) Depression Assessment/Plan: On multiple Rx Code(s): F32.9 - MAJOR DEPRESSIVE DISORDER, SINGLE EPISODE, UNSPECIFIED Qualifiers: Depression Type: major depressive disorder Major depression recurrence : recurrent Psychotic features: without psychotic features (3) Gastrointestinal bleed Assessment/Plan: Probable Elise Mcbride bleed; Probable for Colonoscopy Wednesday Code(s): K92.2 - GASTROINTESTINAL HEMORRHAGE, UNSPECIFIED Qualifiers: GI bleed type/associated pathology: unspecified gastrointestinal hemorrhage type Qualified Code(s): K92.2 - Gastrointestinal hemorrhage, unspecified (4) Hypertension Assessment/Plan: Stable on Coreg Code(s): I10 - ESSENTIAL (PRIMARY) HYPERTENSION (5) Prolonged Q-T interval on ECG Assessment/Plan: QT 410 to 438; on Celexa, lamictal and Tegretol. Cardiology wants on telemetry till it is stabilized. F/U EKG's ordered. Code(s): R94.31 - ABNORMAL ELECTROCARDIOGRAM [ECG] [EKG]
[2017-01-30] MEDS: CHLORHEXIDINE GLUCONATE 4% CLEANSER FOR DECOLONIZATION TP SCH (22:12)
[2017-01-31] MEDS: MAG HYDROX/AL HYDROX/SIMETH 30 ML UNIT-DOSE CUP PO SCH ×4 (01:22→17:09)
[2017-01-31] MEDS: PANTOPRAZOLE SODIUM 80 MG in SODIUM CHLORIDE 100 ML IVPB SCH (05:05)
[2017-01-31 06:16] LABS: BASOPHIL 0.3 % (0-2.0); EOSINOPHIL 0.9 % (0-4.5); MCH 25.4 pg (25.7-33.7); MCHC 32.2 g/dl (32.0-36.0); MEAN CELL VOLUME 78.9 fl (80-96); NEUTROPHILS 72.7 % (42.8-82.8); PLATELET COUNT 165 K/MM3 (134-434); RDW 22.9 % (11.6-15.6); WHITE BLOOD COUNT 6.2 K/mm3 (4.0-10.0)
[2017-01-31 06:36] LABS: SERUM IRON 22 ug/dL (27-159); TOTAL IRON BINDING CAPACITY 332 ug/dL (250-450); UIBC 310 ug/dL (131-425)
[2017-01-31 06:42] LABS: ANION GAP 7 (8-16); CALCIUM 7.7 mg/dL (8.5-10.1); CO2 26 mmol/L (21-32); CREATININE 0.8 mg/dL (0.55-1.02); GLUCOSE,RANDOM 89 mg/dL (74-106)
--- NOTE | 2017-01-31 07:20 | PN ---
Progress Note, Physician Chief Complaint: S/P EGD UNDER GENERAL ANESTHESIA History of Present Illness: POST OP DAY ONE, PATIENT RECEIVED TIVA - Current Medication List Current Medications: Active Medications Acetaminophen (Tylenol -) 650 mg PO Q4H PRN PRN Reason: FEVER OR PAIN Al Hydroxide/Mg Hydroxide (Mylanta Oral Suspension -) 30 ml PO Q6HPO [facility] Last Admin: 01/31/17 06:20 Dose: 30 ml Carbamazepine (Tegretol -) 200 mg PO BID [facility] Last Admin: 01/30/17 22:11 Dose: 200 mg Carvedilol (Coreg -) 12.5 mg PO BID [facility] Last Admin: 01/30/17 22:11 Dose: 12.5 mg Chlorhexidine Gluconate (Hibiclens For Decolonization -) 1 applic TP HS [facility] Last Admin: 01/30/17 22:12 Dose: 1 applic Citalopram Hydrobromide (Celexa -) 40 mg PO DAILY [facility] Last Admin: 01/30/17 09:40 Dose: 40 mg Pantoprazole Sodium 80 mg/ (Sodium Chloride) 100 mls @ 10 mls/hr IVPB Q10H [facility] PRN Reason: 8 MG/HR Last Admin: 01/31/17 05:05 Dose: 10 mls/hr Sodium Chloride (Normal Saline -) 1,000 mls @ 100 mls/hr IV ASDIR [facility] Last Admin: 01/30/17 15:00 Dose: 100 mls/hr Lamotrigine (Lamictal -) 100 mg PO BID [facility] Last Admin: 01/30/17 22:11 Dose: 100 mg Lamotrigine (Lamictal -) 50 mg PO BID [facility] Last Admin: 01/30/17 22:11 Dose: 50 mg Mupirocin (Bactroban Ointment (For Decolonization) -) 1 applic NS BID [facility] Stop: 02/02/17 21:59 Last Admin: 01/30/17 22:12 Dose: 1 applic Nicotine (Nicoderm Patch -) 14 mg TD DAILY [facility] Last Admin: 01/30/17 09:39 Dose: 14 mg Prochlorperazine Edisylate (Compazine Injection -) 10 mg IVPB Q4H PRN PRN Reason: NAUSEA AND/OR VOMITING - Objective Vital Signs: Vital Signs Temperature 97.9 F 01/31/17 01:00 Pulse Rate 74 07/16/17 05:00 Respiratory Rate 22 01/31/17 05:00 Blood Pressure 159/86 01/31/17 05:00 O2 Sat by Pulse Oximetry (%) 96 01/29/17 21:00 Constitutional: Yes: Well Nourished Cardiovascular: Yes: WNL Respiratory: Yes: WNL Gastrointestinal: Yes: WNL Labs: CBC, BMP 01/31/17 05:20 INR, PTT INR 1.12 (0.82-1.09) 01/28/17 14:42 Assessment/Plan PATIENT DOING WELL, NO COMPLAINTS ABOUT ANESTHESIA, NO ADVERSE EFFECTS, DEPT OF ANESTHESIA WILL SIGN OFF CARE AT THIS TIME
--- NOTE | 2017-01-31 08:57 | PN ---
Progress Note (short form) - Note Progress Note: SUBJECTIVE: Patient seen and examined in the ICU. 24HR -slow drift down in hgb but no melena -on clears, could advance but likely c-scope tomorrow - otherwise feeling well -protonix gtt to bid Vital Signs Temp 98 F 01/31/17 07:00 Pulse 76 01/31/17 07:00 Resp 18 01/31/17 07:00 BP 140/82 01/31/17 07:00 Pulse Ox 96 01/29/17 21:00 Intake & Output 01/30/17 01/30/17 01/31/17 11:59 23:59 11:59 Intake Total 970 2420 1520 Balance 970 2420 1520 Weight 74.48 kg 74.389 kg Intake: IV 770 1320 1320 Normal Saline - 1,000 ml 700 @ 100 mls/hr IV ASDIR [facility] Rx#:[id number] PROTONIX GTT 70 120 120 LT WRIST #20 01/28/17 1200 1200 Oral 200 1100 200 Other: Voiding Method Toilet Toilet Toilet # Unmeasured Voids Void 3 3 1 Bowel Movement No Weight Measurement Method Built in Bedscale Built in [facility] Active Medications Acetaminophen (Tylenol -) 650 mg PO Q4H PRN PRN Reason: FEVER OR PAIN Al Hydroxide/Mg Hydroxide (Mylanta Oral Suspension -) 30 ml PO Q6HPO [facility] Last Admin: 01/31/17 06:20 Dose: 30 ml Carbamazepine (Tegretol -) 200 mg PO BID [facility] Last Admin: 01/30/17 22:11 Dose: 200 mg Carvedilol (Coreg -) 12.5 mg PO BID [facility] Last Admin: 01/30/17 22:11 Dose: 12.5 mg Chlorhexidine Gluconate (Hibiclens For Decolonization -) 1 applic TP HS [facility] Last Admin: 01/30/17 22:12 Dose: 1 applic Citalopram Hydrobromide (Celexa -) 40 mg PO DAILY [facility] Last Admin: 01/30/17 09:40 Dose: 40 mg Lamotrigine (Lamictal -) 100 mg PO BID [facility] Last Admin: 01/30/17 22:11 Dose: 100 mg Lamotrigine (Lamictal -) 50 mg PO BID [facility] Last Admin: 01/30/17 22:11 Dose: 50 mg Mupirocin (Bactroban Ointment (For Decolonization) -) 1 applic NS BID [facility] Stop: 02/02/17 21:59 Last Admin: 01/30/17 22:12 Dose: 1 applic Nicotine (Nicoderm Patch -) 14 mg TD DAILY [facility] Last Admin: 01/30/17 09:39 Dose: 14 mg Pantoprazole Sodium (Protonix -) 20 mg PO BID@0600,1800 [facility] Prochlorperazine Edisylate (Compazine Injection -) 10 mg IVPB Q4H PRN PRN Reason: NAUSEA AND/OR VOMITING Constitutional: Yes: Well Nourished, No Distress Cardiovascular: Yes: Regular Rate and Rhythm. No: Gallop, Murmur, Rub Respiratory: Yes: Regular, CTA Bilaterally. No: Rales, Rhonchi, Wheezes Gastrointestinal: Yes: Normal Bowel Sounds, Soft. No: Distention, Tenderness Extremities: Yes: WNL Edema: No NEURO: full intact, non-focal exam Lab Results WBC 6.2 K/mm3 (4.0-10.0) 01/31/17 05:20 RBC 3.25 M/mm3 (3.60-5.2) L 01/31/17 05:20 Hgb 8.3 GM/dL (10.7-15.3) L 01/31/17 05:20 Hct 25.6 % (32.4-45.2) L 01/31/17 05:20 MCV 78.9 fl (80-96) L 01/31/17 05:20 MCHC 32.2 g/dl (32.0-36.0) 01/31/17 05:20 RDW 22.9 % (11.6-15.6) H 01/31/17 05:20 Plt Count 165 K/MM3 (134-434) 01/31/17 05:20 Sodium 143 mmol/L (136-145) 01/31/17 05:20 Potassium 3.8 mmol/L (3.5-5.1) 01/31/17 05:20 Chloride 110 mmol/L (98-107) H 01/31/17 05:20 Carbon Dioxide 26 mmol/L (21-32) 01/31/17 05:20 Anion Gap 7 (8-16) L 01/31/17 05:20 BUN 5 mg/dL (7-18) L 01/31/17 05:20 Creatinine 0.8 mg/dL (0.55-1.02) 01/31/17 05:20 Random Glucose 89 mg/dL (74-106) 01/31/17 05:20 Calcium 7.7 mg/dL (8.5-10.1) L 01/31/17 05:20 Blood Type B POSITIVE 01/28/17 13:00 Antibody Screen Negative 01/28/17 12:38 INR 1.12 (0.82-1.09) 01/28/17 14:42 Problem List - Problems (1) Gastrointestinal bleed Code(s): K92.2 - GASTROINTESTINAL HEMORRHAGE, UNSPECIFIED Qualifiers: GI bleed type/associated pathology: unspecified gastrointestinal hemorrhage type Qualified Code(s): K92.2 - Gastrointestinal hemorrhage, unspecified (2) Anemia Code(s): D64.9 - ANEMIA, UNSPECIFIED Qualifiers: Anemia type: other cause Other causes of anemia: acute posthemorrhagic Qualified Code(s): D62 - Acute posthemorrhagic anemia (3) Abdominal pain Code(s): R10.9 - UNSPECIFIED ABDOMINAL PAIN Qualifiers: Abdominal location: left lower quadrant Qualified Code(s): R10.32 - Left lower quadrant pain (4) Depression Code(s): F32.9 - MAJOR DEPRESSIVE DISORDER, SINGLE EPISODE, UNSPECIFIED Qualifiers: Depression Type: major depressive disorder Major depression recurrence : recurrent Psychotic features: without psychotic features (5) Chest pain Code(s): R07.9 - CHEST PAIN, UNSPECIFIED PLAN: clears, advance as per GI Normal transfusion thresholds O2 as needed Follow CBC PPI bid Monitor for withdrawal -overnight prep if confirm c-scope -ok for med surg Efrain Cantu ACNP [id number]
[2017-01-31] MEDS ORDERED: PT OWN MED DRAWER 7, Y5N ONE ×2 (09:12→21:19)
[2017-01-31] MEDS: MUPIROCIN 2% TOPICAL OINTMENT FOR DECOLONIZATION NS SCH ×2 (09:32→21:40)
[2017-01-31] MEDS: CITALOPRAM HYDROBROMIDE 20 MG TABLET (FP) PO SCH (09:32)
[2017-01-31] MEDS: lamoTRIgine 25 MG TABLET PO SCH ×2 (09:33→21:41)
[2017-01-31] MEDS: CARVEDILOL 12.5 MG TABLET (FP) PO SCH ×2 (09:33→21:40)
[2017-01-31] MEDS: carBAMazepine 200 MG TABLET PO SCH ×2 (09:34→21:39)
[2017-01-31] MEDS: lamoTRIgine 100 MG TABLET (FP) PO SCH ×2 (09:34→21:39)
[2017-01-31] MEDS: NICOTINE 14 MG/24 HOURS TOPICAL PATCH TD SCH (09:35)
--- NOTE | 2017-01-31 11:13 | PN ---
Progress Note (short form) - Note Progress Note: CC: CP S: no cp, palps, dizziness, sob. Current Medications Generic Name Dose Route Start Last Admin Trade Name Freq PRN Reason Stop Dose Admin Acetaminophen 650 mg 01/28/17 15:53 Tylenol - PO Q4H PRN FEVER OR PAIN Al Hydroxide/Mg Hydroxide 30 ml 01/29/17 18:00 01/31/17 06:20 Mylanta Oral Suspension - PO 30 ml Q6HPO [facility] Administration Carbamazepine 200 mg 01/28/17 22:00 01/31/17 09:34 Tegretol - PO 200 mg BID [facility] Administration Carvedilol 12.5 mg 01/28/17 22:00 01/31/17 09:33 Coreg - PO 12.5 mg BID [facility] Administration Chlorhexidine Gluconate 1 applic 01/28/17 22:00 01/30/17 22:12 Hibiclens For Decolonization - TP 1 applic HS [facility] Administration Citalopram Hydrobromide 40 mg 01/29/17 10:00 01/31/17 09:32 Celexa - PO 40 mg DAILY [facility] Administration Lamotrigine 100 mg 01/28/17 22:00 01/31/17 09:34 Lamictal - PO 100 mg BID [facility] Administration Lamotrigine 50 mg 01/28/17 22:00 01/31/17 09:33 Lamictal - PO 50 mg BID [facility] Administration Mupirocin 1 applic 01/28/17 22:00 01/31/17 09:32 Bactroban Ointment (For Decolonization) - NS 02/02/17 21:59 1 applic BID [facility] Administration Nicotine 14 mg 01/28/17 16:30 01/31/17 09:35 Nicoderm Patch - TD 14 mg DAILY [facility] Administration Pantoprazole Sodium 20 mg 01/31/17 18:00 Protonix - PO BID@0600,1800 [facility] Prochlorperazine Edisylate 10 mg 01/29/17 14:43 Compazine Injection - IVPB Q4H PRN NAUSEA AND/OR VOMITING Vital Signs Period Temp Pulse Resp BP Sys/Jorge Pulse Ox Last 24 Hr 97.6 F-98 F 64-87 18-26 124-160/72-88 nad, calm jvd flat, neck supple ctab, nl effort rrr nl s1, s2 no mrg + bs soft nt nd ext without e/c/c aaox3 no jaundice, diaphoresis CBC, BMP 01/31/17 05:20 01/31/17 05:20 tele: sr abd ct: hiatal hernia, no acute pathology. a/p: 56 yo smoker/cocaine user with h/o HTN, depression, recent anemia for which she was supposed to have cscope eval in July who p/w abdominal pain and bleeding. CP - atypical for cardiac pain, lkely 2/2 GI issue/jose platt tear. reevaluate for recurrence now that anemia has been corrected and after tx for GI conditions. prolonged qtc - on longstanding citalopram. caution with other qt prolonging meds like zofran , try alternative. - lyte repletion prn - tele benign, repeat ecg today shows normal qtc - can dc tele when possible tob -cessation counseling htn -counseled on dangers of cocaine and bb use. patient endorses understanding, but denies using cocaine (+tox screen). States she has been on coreg for years.
--- NOTE | 2017-01-31 12:49 | PN ---
Progress Note, Physician Chief Complaint: Patient feels tired but no recurrence of melena. History of Present Illness: Patient with Elise Mcbride tear is slowly improving but hemoglobin slowly drifting down to 8.3GM. ? for Colonoscopy tomorrow. Still on clear liquids and she may need the procedure here as she may not be reliable to return as an outpatient. Repeat lab and type and screen AM. Seen by Cardiology. - Current Medication List Current Medications: Active Medications Acetaminophen (Tylenol -) 650 mg PO Q4H PRN PRN Reason: FEVER OR PAIN Al Hydroxide/Mg Hydroxide (Mylanta Oral Suspension -) 30 ml PO Q6HPO [facility] Last Admin: 01/31/17 06:20 Dose: 30 ml Carbamazepine (Tegretol -) 200 mg PO BID [facility] Last Admin: 01/31/17 09:34 Dose: 200 mg Carvedilol (Coreg -) 12.5 mg PO BID [facility] Last Admin: 01/31/17 09:33 Dose: 12.5 mg Chlorhexidine Gluconate (Hibiclens For Decolonization -) 1 applic TP HS [facility] Last Admin: 01/30/17 22:12 Dose: 1 applic Citalopram Hydrobromide (Celexa -) 40 mg PO DAILY [facility] Last Admin: 01/31/17 09:32 Dose: 40 mg Lamotrigine (Lamictal -) 100 mg PO BID [facility] Last Admin: 01/31/17 09:34 Dose: 100 mg Lamotrigine (Lamictal -) 50 mg PO BID [facility] Last Admin: 01/31/17 09:33 Dose: 50 mg Mupirocin (Bactroban Ointment (For Decolonization) -) 1 applic NS BID [facility] Stop: 02/02/17 21:59 Last Admin: 01/31/17 09:32 Dose: 1 applic Nicotine (Nicoderm Patch -) 14 mg TD DAILY [facility] Last Admin: 01/31/17 09:35 Dose: 14 mg Pantoprazole Sodium (Protonix -) 20 mg PO BID@0600,1800 [facility] Prochlorperazine Edisylate (Compazine Injection -) 10 mg IVPB Q4H PRN PRN Reason: NAUSEA AND/OR VOMITING - Objective Vital Signs: Vital Signs Temperature 97.8 F 01/31/17 11:00 Pulse Rate 72 01/31/17 11:00 Respiratory Rate 18 01/31/17 11:00 Blood Pressure 140/80 01/31/17 11:00 O2 Sat by Pulse Oximetry (%) 96 01/29/17 21:00 Constitutional: Yes: No Distress, Pallor Cardiovascular: Yes: Regular Rate and Rhythm Respiratory: Yes: Regular. No: Rales, SOB Gastrointestinal: Yes: Soft, Hyperactive Bowel Sounds. No: Tenderness Genitourinary: No: Bay Present Edema: No Neurological: Yes: Alert, Oriented Labs: CBC, BMP 01/31/17 05:20 01/31/17 05:20 INR, PTT INR 1.12 (0.82-1.09) 01/28/17 14:42 Problem List - Problems (1) Anemia Assessment/Plan: HB slighly lower to 8.3 GM. No further melena; to follow. Code(s): D64.9 - ANEMIA, UNSPECIFIED Qualifiers: Anemia type: other cause Other causes of anemia: acute posthemorrhagic Qualified Code(s): D62 - Acute posthemorrhagic anemia (2) Depression Assessment/Plan: ON multiple Rx. Code(s): F32.9 - MAJOR DEPRESSIVE DISORDER, SINGLE EPISODE, UNSPECIFIED Qualifiers: Depression Type: major depressive disorder Major depression recurrence : recurrent Psychotic features: without psychotic features (3) Gastrointestinal bleed Assessment/Plan: Melena has stopped. Elise Mcbride tear. On Protonix ?AM Colonoscopy. Code(s): K92.2 - GASTROINTESTINAL HEMORRHAGE, UNSPECIFIED Qualifiers: GI bleed type/associated pathology: unspecified gastrointestinal hemorrhage type Qualified Code(s): K92.2 - Gastrointestinal hemorrhage, unspecified (4) Hypertension Assessment/Plan: Stable BP. 140/80 Code(s): I10 - ESSENTIAL (PRIMARY) HYPERTENSION (5) Prolonged Q-T interval on ECG Assessment/Plan: Followup EKG QT slightly improved today. Code(s): R94.31 - ABNORMAL ELECTROCARDIOGRAM [ECG] [EKG]
--- NOTE | 2017-01-31 13:29 | EKG ---
Test Reason : Blood Pressure : / mmHG Vent. Rate : 074 BPM Atrial Rate : 074 BPM P-R Int : 174 ms QRS Dur : 078 ms QT Int : 406 ms P-R-T Axes : 042 058 060 degrees QTc Int : 450 ms NORMAL SINUS RHYTHM NORMAL ECG WHEN COMPARED WITH ECG OF 30-JAN-2017 10:23, NO SIGNIFICANT CHANGE WAS FOUND Confirmed by CECILIA MOLINA MD ([id number]) on 01/31/2017 1:29:29 PM Referred By: CHAIM CORNELL Confirmed By:CECILIA MOLINA MD
--- NOTE | 2017-01-31 13:30 | EKG ---
Test Reason : Blood Pressure : / mmHG Vent. Rate : 071 BPM Atrial Rate : 071 BPM P-R Int : 152 ms QRS Dur : 094 ms QT Int : 432 ms P-R-T Axes : 027 051 025 degrees QTc Int : 469 ms NORMAL SINUS RHYTHM NORMAL ECG WHEN COMPARED WITH ECG OF 29-JAN-2017 13:21, NO SIGNIFICANT CHANGE WAS FOUND Confirmed by CECILIA MOLINA MD ([id number]) on 01/31/2017 1:30:32 PM Referred By: Christofer VASQUEZ Confirmed By:CECILIA MOLINA MD
[2017-01-31] MEDS: PANTOPRAZOLE 20 MG TABLET (FP) PO SCH (17:09)
[2017-01-31] MEDS: CHLORHEXIDINE GLUCONATE 4% CLEANSER FOR DECOLONIZATION TP SCH (21:40)
[2017-02-01 06:27] LABS: BASOPHIL 0.3 % (0-2.0); MCH 25.9 pg (25.7-33.7); MCHC 32.8 g/dl (32.0-36.0); MEAN CELL VOLUME 78.9 fl (80-96); MEAN PLT VOLUME 7.7 fl (7.5-11.1); NEUTROPHILS 66.5 % (42.8-82.8); PLATELET COUNT 168 K/MM3 (134-434); RDW 23.6 % (11.6-15.6); WHITE BLOOD COUNT 5.6 K/mm3 (4.0-10.0)
[2017-02-01] MEDS: MAG HYDROX/AL HYDROX/SIMETH 30 ML UNIT-DOSE CUP PO SCH ×3 (06:27→13:33)
[2017-02-01] MEDS: PANTOPRAZOLE 20 MG TABLET (FP) PO SCH ×2 (06:28→18:31)
[2017-02-01 06:56] LABS: ANION GAP 4 (8-16); CALCIUM 7.8 mg/dL (8.5-10.1); CO2 30 mmol/L (21-32); GLUCOSE,RANDOM 85 mg/dL (74-106); MAGNESIUM 2.3 mg/dL (1.8-2.4)
[2017-02-01 06:57] LABS: CREATININE 0.9 mg/dL (0.55-1.02)
[2017-02-01] MEDS: MUPIROCIN 2% TOPICAL OINTMENT FOR DECOLONIZATION NS SCH ×2 (09:14→21:38)
[2017-02-01] MEDS: CITALOPRAM HYDROBROMIDE 20 MG TABLET (FP) PO SCH (09:15)
[2017-02-01] MEDS: CARVEDILOL 12.5 MG TABLET (FP) PO SCH ×2 (09:16→21:38)
[2017-02-01] MEDS: lamoTRIgine 25 MG TABLET PO SCH ×2 (09:17→21:39)
[2017-02-01] MEDS: NICOTINE 14 MG/24 HOURS TOPICAL PATCH TD SCH (09:18)
[2017-02-01] MEDS: lamoTRIgine 100 MG TABLET (FP) PO SCH ×2 (09:18→21:39)
[2017-02-01] MEDS: carBAMazepine 200 MG TABLET PO SCH ×2 (09:19→21:39)
--- NOTE | 2017-02-01 09:56 | PN ---
GI Progress Note Subjective: No acute events No abdominal pain No melena/rectal bleeding Tells me that she has a long standing history of anemia as does multiple family members Having QT prolongation evaluated Jose-Mcbride tear noted on EGD performed by Dr. Perez along with large hiatal hernia, gastritis and duodenitis. 3 month follow-up exam was advised - Objective Vital Signs: Vital Signs Temperature 98 F 02/01/17 06:00 Pulse Rate 87 02/01/17 09:00 Respiratory Rate 18 02/01/17 09:00 Blood Pressure 153/81 02/01/17 09:00 O2 Sat by Pulse Oximetry (%) 100 02/01/17 08:54 Constitutional: Calm Eyes: No: Sclera Icterus Cardiovascular: Yes: Regular Rate and Rhythm Respiratory: Yes: CTA Bilaterally Gastrointestinal Inspection: No: Distention ...Auscultate: Yes: Normoactive Bowel Sounds ...Palpate: No: Tenderness Edema: LLE: Trace, RLE: Trace Neurological: Yes: Alert, Oriented Labs: CBC, BMP 02/01/17 05:50 02/01/17 05:50 INR, PTT INR 1.12 (0.82-1.09) 01/28/17 14:42 Problem List - Problems (1) Gastrointestinal bleed Assessment/Plan: No overt bleeding. Decreased Hgb noted. Component of iron deficiency given low ferritin. If H/H continues to dwindle, would consider inpatient colonoscopy oitherwise ideally would wait for bowel prep in the setting of prolonged QT and significant jose mcbride tear noted in EGD Continue Protonix 20mg PO BID Cardiology evaluation of prolonged QT Follow-up with dr. perez in office. advised reepat EGD in 3 months Code(s): K92.2 - GASTROINTESTINAL HEMORRHAGE, UNSPECIFIED Qualifiers: GI bleed type/associated pathology: unspecified gastrointestinal hemorrhage type Qualified Code(s): K92.2 - Gastrointestinal hemorrhage, unspecified
--- NOTE | 2017-02-01 10:05 | PN ---
Progress Note (short form) - Note Progress Note: to document today. Hb 8. Gm; ??Colonoscopy Problem List - Problems (1) Anemia Code(s): D64.9 - ANEMIA, UNSPECIFIED Qualifiers: Qualified Code(s): D62 - Acute posthemorrhagic anemia (2) Depression Code(s): F32.9 - MAJOR DEPRESSIVE DISORDER, SINGLE EPISODE, UNSPECIFIED Qualifiers: Qualified Code(s): F33.2 - Major depressive disorder, recurrent severe without psychotic features (3) Gastrointestinal bleed Code(s): K92.2 - GASTROINTESTINAL HEMORRHAGE, UNSPECIFIED Qualifiers: Qualified Code(s): K92.2 - Gastrointestinal hemorrhage, unspecified (4) Hypertension Code(s): I10 - ESSENTIAL (PRIMARY) HYPERTENSION (5) Prolonged Q-T interval on ECG Code(s): R94.31 - ABNORMAL ELECTROCARDIOGRAM [ECG] [EKG]
--- NOTE | 2017-02-01 11:14 | PN ---
Progress Note, Physician Chief Complaint: Ms Badillo is without complaint. No chest pain, shortness of breath, nausea/ vomiting. Is tolerating a normal diet and having normal bowel movements without bleeding or melena. - Current Medication List Current Medications: Active Medications Acetaminophen (Tylenol -) 650 mg PO Q4H PRN PRN Reason: FEVER OR PAIN Al Hydroxide/Mg Hydroxide (Mylanta Oral Suspension -) 30 ml PO Q6HPO [facility] Last Admin: 02/01/17 06:27 Dose: 30 ml Carbamazepine (Tegretol -) 200 mg PO BID [facility] Last Admin: 02/01/17 09:19 Dose: 200 mg Carvedilol (Coreg -) 12.5 mg PO BID [facility] Last Admin: 02/01/17 09:16 Dose: 12.5 mg Chlorhexidine Gluconate (Hibiclens For Decolonization -) 1 applic TP HS [facility] Last Admin: 01/31/17 21:40 Dose: 1 applic Citalopram Hydrobromide (Celexa -) 40 mg PO DAILY [facility] Last Admin: 02/01/17 09:15 Dose: 40 mg Lamotrigine (Lamictal -) 100 mg PO BID [facility] Last Admin: 02/01/17 09:18 Dose: 100 mg Lamotrigine (Lamictal -) 50 mg PO BID [facility] Last Admin: 02/01/17 09:17 Dose: 50 mg Mupirocin (Bactroban Ointment (For Decolonization) -) 1 applic NS BID [facility] Stop: 02/02/17 21:59 Last Admin: 02/01/17 09:14 Dose: 1 applic Nicotine (Nicoderm Patch -) 14 mg TD DAILY [facility] Last Admin: 02/01/17 09:18 Dose: 14 mg Pantoprazole Sodium (Protonix -) 20 mg PO BID@0600,1800 [facility] Last Admin: 02/01/17 06:28 Dose: 20 mg Prochlorperazine Edisylate (Compazine Injection -) 10 mg IVPB Q4H PRN PRN Reason: NAUSEA AND/OR VOMITING - Objective Vital Signs: Vital Signs Temperature 98 F 02/01/17 06:00 Pulse Rate 87 02/01/17 09:00 Respiratory Rate 18 02/01/17 09:00 Blood Pressure 153/81 02/01/17 09:00 O2 Sat by Pulse Oximetry (%) 100 02/01/17 08:54 Constitutional: Yes: Well Nourished, No Distress, Calm Cardiovascular: Yes: Regular Rate and Rhythm. No: Gallop, Murmur, Rub Respiratory: Yes: Regular, CTA Bilaterally. No: Rales, Rhonchi, Wheezes Gastrointestinal: Yes: Normal Bowel Sounds, Soft. No: Distention, Tenderness Extremities: Yes: WNL Edema: No Labs: CBC, BMP 02/01/17 05:50 02/01/17 05:50 INR, PTT INR 1.12 (0.82-1.09) 01/28/17 14:42 Problem List - Problems (1) Gastrointestinal bleed Code(s): K92.2 - GASTROINTESTINAL HEMORRHAGE, UNSPECIFIED Qualifiers: GI bleed type/associated pathology: unspecified gastrointestinal hemorrhage type Qualified Code(s): K92.2 - Gastrointestinal hemorrhage, unspecified (2) Anemia Code(s): D64.9 - ANEMIA, UNSPECIFIED Qualifiers: Anemia type: other cause Other causes of anemia: acute posthemorrhagic Qualified Code(s): D62 - Acute posthemorrhagic anemia (3) Abdominal pain Code(s): R10.9 - UNSPECIFIED ABDOMINAL PAIN Qualifiers: Abdominal location: left lower quadrant Qualified Code(s): R10.32 - Left lower quadrant pain (4) Depression Code(s): F32.9 - MAJOR DEPRESSIVE DISORDER, SINGLE EPISODE, UNSPECIFIED Qualifiers: Depression Type: major depressive disorder Major depression recurrence : recurrent Psychotic features: without psychotic features (5) Chest pain Code(s): R07.9 - CHEST PAIN, UNSPECIFIED Assessment/Plan (1) Gastrointestinal bleed Assessment/Plan: -s/p endoscopy -GI following -on protonix bid -plan for endoscopy in 3 months -? colonoscopy at that time as well -holding on colonoscopy secondary to tears, do not want to exacerbate Code(s): K92.2 - GASTROINTESTINAL HEMORRHAGE, UNSPECIFIED Qualifiers: GI bleed type/associated pathology: unspecified gastrointestinal hemorrhage type Qualified Code(s): K92.2 - Gastrointestinal hemorrhage, unspecified (2) Anemia Assessment/Plan: -proper response to transfusion -still decreasing -monitor Code(s): D64.9 - ANEMIA, UNSPECIFIED Qualifiers: Anemia type: other cause Other causes of anemia: acute posthemorrhagic Qualified Code(s): D62 - Acute posthemorrhagic anemia (3) Abdominal pain Assessment/Plan: -resolved Code(s): R10.9 - UNSPECIFIED ABDOMINAL PAIN Qualifiers: Abdominal location: left lower quadrant Qualified Code(s): R10.32 - Left lower quadrant pain (4) Depression Assessment/Plan: -continue home regimen Code(s): F32.9 - MAJOR DEPRESSIVE DISORDER, SINGLE EPISODE, UNSPECIFIED Qualifiers: Depression Type: major depressive disorder Major depression recurrence : recurrent Psychotic features: without psychotic features (5) Chest pain Assessment/Plan: -appreciate cardiology assistance Code(s): R07.9 - CHEST PAIN, UNSPECIFIED Dispo -possible discharge tomorrow if H/H stable
--- NOTE | 2017-02-01 12:31 | EKG ---
Test Reason : Blood Pressure : / mmHG Vent. Rate : 078 BPM Atrial Rate : 078 BPM P-R Int : 166 ms QRS Dur : 092 ms QT Int : 404 ms P-R-T Axes : 038 055 071 degrees QTc Int : 460 ms NORMAL SINUS RHYTHM NORMAL ECG WHEN COMPARED WITH ECG OF 31-JAN-2017 08:38, NO SIGNIFICANT CHANGE WAS FOUND Confirmed by VINH RAMSEY MD ([id number]) on 02/01/2017 12:31:36 PM Referred By: CHAIM CORNELL Confirmed By:VINH RAMSEY MD
--- NOTE | 2017-02-01 12:41 | PN ---
Teaching Attending Note Name of Resident: Frederic Wilkins ATTENDING PHYSICIAN STATEMENT I saw and evaluated the patient. I reviewed the resident's note and discussed the case with the resident. I agree with the resident's findings and plan as documented. SUBJECTIVE: Overall feeling better. No CP or SOB. Tolerating PO intake. No acute bleeding noted. Intake & Output 01/29/17 01/30/17 01/31/17 02/01/17 23:59 23:59 23:59 23:59 Intake Total 3250 3390 2080 570 Output Total 5 Balance 3245 3390 2080 570 Weight 164 lb 3.2 oz 164 lb 163 lb 9.6 oz Last Vital Signs Temp Pulse Resp BP Pulse Ox 98 F 78 20 114/69 100 02/01/17 06:00 02/01/17 10:00 02/01/17 10:00 02/01/17 10:00 02/01/17 08:54 Active Medications Acetaminophen (Tylenol -) 650 mg PO Q4H PRN PRN Reason: FEVER OR PAIN Al Hydroxide/Mg Hydroxide (Mylanta Oral Suspension -) 30 ml PO Q6HPO [facility] Last Admin: 02/01/17 06:27 Dose: 30 ml Carbamazepine (Tegretol -) 200 mg PO BID [facility] Last Admin: 02/01/17 09:19 Dose: 200 mg Carvedilol (Coreg -) 12.5 mg PO BID [facility] Last Admin: 02/01/17 09:16 Dose: 12.5 mg Chlorhexidine Gluconate (Hibiclens For Decolonization -) 1 applic TP HS [facility] Last Admin: 01/31/17 21:40 Dose: 1 applic Citalopram Hydrobromide (Celexa -) 40 mg PO DAILY [facility] Last Admin: 02/01/17 09:15 Dose: 40 mg Lamotrigine (Lamictal -) 100 mg PO BID [facility] Last Admin: 02/01/17 09:18 Dose: 100 mg Lamotrigine (Lamictal -) 50 mg PO BID [facility] Last Admin: 02/01/17 09:17 Dose: 50 mg Mupirocin (Bactroban Ointment (For Decolonization) -) 1 applic NS BID [facility] Stop: 02/02/17 21:59 Last Admin: 02/01/17 09:14 Dose: 1 applic Nicotine (Nicoderm Patch -) 14 mg TD DAILY [facility] Last Admin: 02/01/17 09:18 Dose: 14 mg Pantoprazole Sodium (Protonix -) 20 mg PO BID@0600,1800 [facility] Last Admin: 02/01/17 06:28 Dose: 20 mg Prochlorperazine Edisylate (Compazine Injection -) 10 mg IVPB Q4H PRN PRN Reason: NAUSEA AND/OR VOMITING Constitutional: Yes: Well Nourished, No Distress Cardiovascular: Yes: Regular Rate and Rhythm. No: Gallop, Murmur, Rub Respiratory: Yes: Regular, CTA Bilaterally. No: Rales, Rhonchi, Wheezes Gastrointestinal: Yes: Normal Bowel Sounds, Soft. No: Distention, Tenderness Extremities: Yes: WNL Edema: No Labs: Laboratory Results - last 24 hr 01/28/17 02/01/17 02/01/17 13:00 05:50 05:50 WBC 5.6 RBC 3.10 L Hgb 8.0 L Hct 24.4 L MCV 78.9 L MCH 25.9 MCHC 32.8 RDW 23.6 H Plt Count 168 MPV 7.7 Neutrophils % 66.5 Lymphocytes % 23.4 D Monocytes % 8.8 Eosinophils % 1.0 Basophils % 0.3 Sodium 142 Potassium 3.8 Chloride 108 H Carbon Dioxide 30 Anion Gap 4 L BUN 5 L Creatinine 0.9 Random Glucose 85 Calcium 7.8 L Magnesium 2.3 Blood Type B POSITIVE Antibody Screen Crossmatch See Detail 02/01/17 05:50 WBC RBC Hgb Hct MCV MCH MCHC RDW Plt Count MPV Neutrophils % Lymphocytes % Monocytes % Eosinophils % Basophils % Sodium Potassium Chloride Carbon Dioxide Anion Gap BUN Creatinine Random Glucose Calcium Magnesium Blood Type B POSITIVE Antibody Screen Negative Crossmatch Problem List - Problems (1) Gastrointestinal bleed Code(s): K92.2 - GASTROINTESTINAL HEMORRHAGE, UNSPECIFIED Qualifiers: GI bleed type/associated pathology: unspecified gastrointestinal hemorrhage type Qualified Code(s): K92.2 - Gastrointestinal hemorrhage, unspecified (2) Anemia Code(s): D64.9 - ANEMIA, UNSPECIFIED Qualifiers: Anemia type: other cause Other causes of anemia: acute posthemorrhagic Qualified Code(s): D62 - Acute posthemorrhagic anemia (3) Abdominal pain Code(s): R10.9 - UNSPECIFIED ABDOMINAL PAIN Qualifiers: Abdominal location: left lower quadrant Qualified Code(s): R10.32 - Left lower quadrant pain (4) Depression Code(s): F32.9 - MAJOR DEPRESSIVE DISORDER, SINGLE EPISODE, UNSPECIFIED Qualifiers: Depression Type: major depressive disorder Major depression recurrence : recurrent Psychotic features: without psychotic features (5) Chest pain Code(s): R07.9 - CHEST PAIN, UNSPECIFIED PLAN: Follow EKG for QT interval PO as tolerated Normal transfusion thresholds O2 as needed PPI D/C planning Dr C[place]ton
--- NOTE | 2017-02-01 14:08 | PN ---
Physical Exam: SUBJECTIVE: 56 year old female pmh depression, HTN, ulcerative colitis, previous GI bleed in ICU s/p jose jose tear and duodenitis diagnosed on EGD. Pt is on hospital day #5. GI postponed colonoscopy and recommends outpatient f/u. Cardiology suggested f/u with EKG for QT interval before transfer [facility] [place]. OBJECTIVE: Vital Signs Period Temp Pulse Resp BP Sys/Jorge Pulse Ox Last 24 Hr 98 F-98.2 F 71-87 16-26 114-176/69-95 100-100 GENERAL: The patient is awake, alert, and fully oriented, in no acute distress. HEAD: Normal with no signs of trauma. EYES: PERRL, extraocular movements intact, sclera anicteric, conjunctiva clear. No ptosis. ENT: Ears normal, nares patent, oropharynx clear without exudates, moist mucous membranes. NECK: Trachea midline, full range of motion, supple. LUNGS: Breath sounds equal, clear to auscultation bilaterally, no wheezes, no crackles, no accessory muscle use. HEART: Regular rate and rhythm, S1, S2 without murmur, rub or gallop. ABDOMEN: Soft, nontender, nondistended, normoactive bowel sounds, no guarding, no rebound, no hepatosplenomegaly, no masses. EXTREMITIES: 2+ pulses, warm, well-perfused, no edema. NEUROLOGICAL: Cranial nerves II through XII grossly intact. Normal speech, gait not observed. PSYCH: Normal mood, normal affect. SKIN: Warm, dry, normal turgor, no rashes or lesions noted CBC, BMP 02/01/17 05:50 02/01/17 05:50 Active Medications Generic Name Dose Route Start Last Admin Trade Name Freq PRN Reason Stop Dose Admin Acetaminophen 650 mg 01/28/17 15:53 Tylenol - PO Q4H PRN FEVER OR PAIN Al Hydroxide/Mg Hydroxide 30 ml 02/01/17 22:00 Mylanta Oral Suspension - PO BID [facility] Carbamazepine 200 mg 01/28/17 22:00 02/01/17 09:19 Tegretol - PO 200 mg BID [facility] Administration Carvedilol 12.5 mg 01/28/17 22:00 02/01/17 09:16 Coreg - PO 12.5 mg BID [facility] Administration Chlorhexidine Gluconate 1 applic 01/28/17 22:00 01/31/17 21:40 Hibiclens For Decolonization - TP 1 applic HS [facility] Administration Citalopram Hydrobromide 40 mg 01/29/17 10:00 02/01/17 09:15 Celexa - PO 40 mg DAILY [facility] Administration Lamotrigine 100 mg 01/28/17 22:00 02/01/17 09:18 Lamictal - PO 100 mg BID [facility] Administration Lamotrigine 50 mg 01/28/17 22:00 02/01/17 09:17 Lamictal - PO 50 mg BID [facility] Administration Mupirocin 1 applic 01/28/17 22:00 02/01/17 09:14 Bactroban Ointment (For Decolonization) - NS 02/02/17 21:59 1 applic BID [facility] Administration Nicotine 14 mg 01/28/17 16:30 02/01/17 09:18 Nicoderm Patch - TD 14 mg DAILY [facility] Administration Pantoprazole Sodium 20 mg 01/31/17 18:00 02/01/17 06:28 Protonix - PO 20 mg BID@0600,1800 [facility] Administration Prochlorperazine Edisylate 10 mg 01/29/17 14:43 Compazine Injection - IVPB Q4H PRN NAUSEA AND/OR VOMITING EKG 01/31: QTi = 406 EKG 02/01: QTi = 404 ASSESSMENT/PLAN: 56 year old female s/p jose jose tear and duodenitis Neuro: -continue home carbamezepine, lamotrigine -continue citalopram Cardiovascular: resolved QTi prolongation possibly due to anticonvulsant use vs cocaine use (U tox) in conjunction with B-volodymyr -Serial EKG to monitor QTi -Hgb trending down, 8.0 today -monitor H&H -stable for transfer to tele -[facility] carvedilol -counseled on effects of cocaine use Pulmonary: normal O2 sats -continue 2L O2 by NC PRN -monitor O2 sats GI: recent diarrhea began today -decrease Mg hydroxide to BID -continue normal diet as tolerated Dispo: -Transfer to tele -continue home medications Problem List - Problems (1) Gastrointestinal bleed Code(s): K92.2 - GASTROINTESTINAL HEMORRHAGE, UNSPECIFIED Qualifiers: GI bleed type/associated pathology: unspecified gastrointestinal hemorrhage type Qualified Code(s): K92.2 - Gastrointestinal hemorrhage, unspecified (2) Abdominal pain Code(s): R10.9 - UNSPECIFIED ABDOMINAL PAIN Qualifiers: Abdominal location: left lower quadrant Qualified Code(s): R10.32 - Left lower quadrant pain (3) Anemia Code(s): D64.9 - ANEMIA, UNSPECIFIED Qualifiers: Anemia type: other cause Other causes of anemia: acute posthemorrhagic Qualified Code(s): D62 - Acute posthemorrhagic anemia (4) Depression Code(s): F32.9 - MAJOR DEPRESSIVE DISORDER, SINGLE EPISODE, UNSPECIFIED Qualifiers: Depression Type: major depressive disorder Major depression recurrence : recurrent Psychotic features: without psychotic features (5) Occult blood positive stool Code(s): R19.5 - OTHER FECAL ABNORMALITIES Visit type - Emergency Visit Emergency Visit: No - New Patient This patient is new to me today: No - Critical Care Critical Care patient: Yes Total Critical Care Time (in minutes): 45 Critical Care Statement: The care of this patient involved high complexity decision making to prevent further life threatening deterioration of the patient 's condition and/or to evalute & treat vital organ system(s) failure or risk of failure.
--- NOTE | 2017-02-01 14:47 | PN ---
Progress Note (short form) - Note Progress Note: CC: CP S: no cp, palps, dizziness, sob. Current Medications Generic Name Dose Route Start Last Admin Trade Name Freq PRN Reason Stop Dose Admin Acetaminophen 650 mg 01/28/17 15:53 Tylenol - PO Q4H PRN FEVER OR PAIN Al Hydroxide/Mg Hydroxide 30 ml 02/01/17 22:00 Mylanta Oral Suspension - PO BID [facility] Carbamazepine 200 mg 01/28/17 22:00 02/01/17 09:19 Tegretol - PO 200 mg BID [facility] Administration Carvedilol 12.5 mg 01/28/17 22:00 02/01/17 09:16 Coreg - PO 12.5 mg BID [facility] Administration Chlorhexidine Gluconate 1 applic 01/28/17 22:00 01/31/17 21:40 Hibiclens For Decolonization - TP 1 applic HS [facility] Administration Citalopram Hydrobromide 40 mg 01/29/17 10:00 02/01/17 09:15 Celexa - PO 40 mg DAILY [facility] Administration Lamotrigine 100 mg 01/28/17 22:00 02/01/17 09:18 Lamictal - PO 100 mg BID [facility] Administration Lamotrigine 50 mg 01/28/17 22:00 02/01/17 09:17 Lamictal - PO 50 mg BID [facility] Administration Mupirocin 1 applic 01/28/17 22:00 02/01/17 09:14 Bactroban Ointment (For Decolonization) - NS 02/02/17 21:59 1 applic BID [facility] Administration Nicotine 14 mg 01/28/17 16:30 02/01/17 09:18 Nicoderm Patch - TD 14 mg DAILY [facility] Administration Pantoprazole Sodium 20 mg 01/31/17 18:00 02/01/17 06:28 Protonix - PO 20 mg BID@0600,1800 [facility] Administration Prochlorperazine Edisylate 10 mg 01/29/17 14:43 Compazine Injection - IVPB Q4H PRN NAUSEA AND/OR VOMITING Vital Signs Period Temp Pulse Resp BP Sys/Jorge Pulse Ox Last 24 Hr 98 F-98.3 F 16-87 16-26 114-176/69-95 100-100 nad, calm jvd flat, neck supple ctab, nl effort rrr nl s1, s2 no mrg + bs soft nt nd ext without e/c/c aaox3 no jaundice, diaphoresis CBC, BMP 02/01/17 05:50 02/01/17 05:50 tele: sr abd ct: hiatal hernia, no acute pathology. a/p: 56 yo smoker/cocaine user with h/o HTN, depression, recent anemia for which she was supposed to have cscope eval in July who p/w abdominal pain and bleeding. CP - atypical for cardiac pain, lkely 2/2 GI issue/jose platt tear. reevaluate for recurrence now that anemia has been corrected and after tx for GI conditions. prolonged qtc-->resolved - on longstanding citalopram. caution with other qt prolonging meds - tele benign here several days and multiple repeat ecgs are now showing normal qtc - can dc tele tob -cessation counseling htn -counseled on dangers of cocaine and bb use. patient endorses understanding, but denies using cocaine (+tox screen). States she has been on coreg for years.
[2017-02-01] MEDS ORDERED: PT OWN MED DRAWER 7, Y5N ONE ×2 (15:15→21:31)
[2017-02-01] MEDS: CHLORHEXIDINE GLUCONATE 4% CLEANSER FOR DECOLONIZATION TP SCH (21:38)
[2017-02-01] MEDS ORDERED: MAG HYDROX/AL HYDROX/SIMETH 30 ML UNIT-DOSE CUP PO SCH (22:00)
[2017-02-02] MEDS: PANTOPRAZOLE 20 MG TABLET (FP) PO SCH (06:04)
[2017-02-02] MEDS ORDERED: ACETAMINOPHEN 325 MG TABLET (FP) PO PRN (07:08)
[2017-02-02] MEDS ORDERED: PROCHLORPERAZINE INJECTION 10 MG/2 ML VIAL IVPB PRN (07:08)
[2017-02-02 08:09] LABS: BASOPHIL 0.4 % (0-2.0); EOSINOPHIL 1.7 % (0-4.5); MCH 26.3 pg (25.7-33.7); MCHC 33.3 g/dl (32.0-36.0); MEAN PLT VOLUME 7.8 fl (7.5-11.1); NEUTROPHILS 65.5 % (42.8-82.8); PLATELET COUNT 172 K/MM3 (134-434); RDW 24.2 % (11.6-15.6); WHITE BLOOD COUNT 5.1 K/mm3 (4.0-10.0)
[2017-02-02 08:18] LABS: ANION GAP 7 (8-16); CALCIUM 8.2 mg/dL (8.5-10.1); CO2 29 mmol/L (21-32); CREATININE 0.9 mg/dL (0.55-1.02); GLUCOSE,RANDOM 90 mg/dL (74-106); MAGNESIUM 2.3 mg/dL (1.8-2.4)
[2017-02-02 08:36] VITALS: BP 178/98; PULSE 71; TEMP 98.1
[2017-02-02] MEDS ORDERED: PT OWN MED DRAWER 7, Y5N ONE ×2 (08:58→09:50)
[2017-02-02] MEDS ORDERED: NICOTINE 14 MG/24 HOURS TOPICAL PATCH TD SCH (10:00)
[2017-02-02] MEDS ORDERED: CITALOPRAM HYDROBROMIDE 20 MG TABLET (FP) PO SCH (10:00)
[2017-02-02] MEDS ORDERED: MAG HYDROX/AL HYDROX/SIMETH 30 ML UNIT-DOSE CUP PO SCH (10:00)
[2017-02-02] MEDS ORDERED: lamoTRIgine 100 MG TABLET (FP) PO SCH (10:00)
[2017-02-02] MEDS ORDERED: CARVEDILOL 12.5 MG TABLET (FP) PO SCH (10:00)
[2017-02-02] MEDS ORDERED: carBAMazepine 200 MG TABLET PO SCH (10:00)
[2017-02-02] MEDS ORDERED: lamoTRIgine 25 MG TABLET PO SCH (10:00)
[2017-02-02] MEDS ORDERED: MUPIROCIN 2% TOPICAL OINTMENT FOR DECOLONIZATION NS SCH (10:00)
--- NOTE | 2017-02-02 12:19 | DS ---
Physical Examination Vital Signs: Vital Signs Temperature 98.1 F 02/02/17 08:35 Pulse Rate 71 02/02/17 08:35 Respiratory Rate 18 02/02/17 08:35 Blood Pressure 178/98 02/02/17 08:35 O2 Sat by Pulse Oximetry (%) 97 02/02/17 09:00 Constitutional: Yes: Anxious Eyes: Yes: Conjunctiva Clear Cardiovascular: Yes: Regular Rate and Rhythm Respiratory: Yes: Regular Gastrointestinal: Yes: Soft, Hyperactive Bowel Sounds. No: Tenderness Edema: No Neurological: Yes: Alert, Oriented Labs: CBC, BMP 02/02/17 06:55 02/02/17 06:55 Discharge Summary Reason For Visit: ANEMIA Acute Elise Mcbride tear Acute GI Bleed with critical blood loss anemia Blood transfusion (3) acute + Cocaine drug screen (acute) Hypertension(acute) Procedures: Principal: Blood transfusions (3). ICU monitoring Other Procedures: EGD; Daily CBC. Cardiology and GI Consultations Hospital Course: Hb drifted down to 8GM but stable X 2 days. To D/C + Iron Rx and VitC Repeat CBC this Wednesday. Condition: Improved - Instructions Diet, Activity, Other Instructions: Soft diet: no added salt. Small frequent meals. Blood test this Wednesday AM at [place]. Dr. Ram appt. in Mid February. JAYJAY TRAORE 3 months. Referrals: Nabeel Ram MD [Primary Care Provider] - Cristhian Perez MD [Staff Physician] - Disposition: HOME - Home Medications Comprehensive Discharge Medication List: Ambulatory Orders Carbamazepine [Tegretol -] 200 mg PO BID 01/28/17 Carvedilol [Coreg -] 12.5 mg PO BID 01/28/17 Citalopram Hydrobromide [Celexa -] 40 mg PO DAILY 01/28/17 LamoTRIgine [LaMICtal] 150 mg PO BID 01/28/17 Ascorbic Acid [Vitamin C -] 500 mg PO BID #60 tablet 02/02/17 Ferrous Sulfate [Feosol] 325 mg PO BIDWM #60 tab 02/02/17 Mag Hydrox/Al Hydrox/Simeth [Mylanta Oral Suspension -] 30 ml PO Q6HPO #240 ml 02/02/17 Nicotine Patch [Nicoderm Patch -] 14 mg TD DAILY #30 patch 02/02/17 Pantoprazole Sodium [Protonix -] 20 mg PO BID@0600,1800 #60 tab 02/02/17
--- NOTE | 2017-02-02 12:44 | PATH ---
Surgical Pathology Report Patient Name: MIRTA PEREZ Med. Rec. #: [id number] /Age/Gender: 1960 (Age: 56) / F Account: [id number] Location: [facility] MED/SURG Taken: 02/01/2017 Received: 02/01/2017 Reported: 02/02/2017 Physicians: Cristhian Perez M.D. Specimen(s) Received BX ANTRUM Clinical History GI bleed, anemia GI bleed, Elise-Mcbride tear, hiatal hernia, duodenitis, gastritis Final Diagnosis STOMACH, ANTRUM, BIOPSY: GASTRIC ANTRAL MUCOSA WITH MODERATE CHRONIC GASTRITIS AND REACTIVE GASTROPATHY. IMMUNOSTAIN FOR H. PYLORI IS NEGATIVE FOR ORGANISMS. Electronically Signed Vel Valencia M.D. Gross Description Received in formalin, labeled "biopsy antrum" are 2 brambila, irregular portions of soft tissue measuring 0.1 and 0.2 cm in greatest dimension. The specimens are submitted in toto in one cassette. 02/01/201702/01/2017
--- NOTE | 2017-02-02 13:32 | EKG ---
Test Reason : Blood Pressure : / mmHG Vent. Rate : 064 BPM Atrial Rate : 064 BPM P-R Int : 168 ms QRS Dur : 096 ms QT Int : 444 ms P-R-T Axes : 035 035 036 degrees QTc Int : 458 ms NORMAL SINUS RHYTHM NORMAL ECG WHEN COMPARED WITH ECG OF 01-FEB-2017 09:06, ST SEGMENTS ARE ISOELECTRIC IN V5-V6 Confirmed by DARIUS TREADWELL MD ([id number] on 02/02/2017 1:31:56 PM Referred By: FRANDY BRADFORD Confirmed By:DARIUS TREADWELL MD
[2017-02-02] MEDS ORDERED: ASCORBIC ACID 500 MG TABLET (FP) PO SCH (17:30)
[2017-02-02] MEDS ORDERED: FERROUS SO4 325 MG TABLET (FP) PO SCH (17:30)
[2017-02-02] MEDS ORDERED: PANTOPRAZOLE 20 MG TABLET (FP) PO SCH (18:00)
[2017-02-02] MEDS ORDERED: CHLORHEXIDINE GLUCONATE 4% CLEANSER FOR DECOLONIZATION TP SCH (22:00)
== END 2017-02-02 11:18 | disposition home or self-care (01) | DRG 369 ==
LOC: JER 11:19 → JERBED 14:34 → JICU 16:27 → J8W 02-01 23:30
PROVIDERS: ADMIT Internal Medicine; ATTEND Internal Medicine
PROC: 30233N1 Transfusion of Nonautologous Red Blood Cells into Peripheral Vein, Percutaneous Approach (ICD-10-PCS; principal; 2017-01-28)
PROC: 0DB78ZX Excision of Stomach, Pylorus, Via Natural or Artificial Opening Endoscopic, Diagnostic (ICD-10-PCS; 2017-01-29)
DX: K22.6 Gastro-esophageal laceration-hemorrhage syndrome (principal); D62 Acute posthemorrhagic anemia; I10 Essential (primary) hypertension; F32.9 Major depressive disorder, single episode, unspecified; F17.210 Nicotine dependence, cigarettes, uncomplicated; F14.10 Cocaine abuse, uncomplicated; R07.9 Chest pain, unspecified; R11.2 Nausea with vomiting, unspecified; R00.2 Palpitations; R51 Headache; I45.81 Long QT syndrome; K29.60 Other gastritis without bleeding; K44.9 Diaphragmatic hernia without obstruction or gangrene
CPT/HCPCS: 36415; 36430; 74177-TC; 80048; 80053; 80307; 81003; 81015; 82272; 82550; 82607; 82728; 82746; 83540; 83550; 83735; 84100; 84484; 85025; 85610; 85730; 86850; 86900; 86901; 86922; 88305-TC; 93005; 93010; 99285-25; P9038; P9058; Q9967

== ENCOUNTER 2017-07-30 07:09 | Day surgery (SDC) | payer OTHER ==
[2017-07-30 07:53] VITALS: TEMP 97.8
[2017-07-30 08:18] VITALS: BMI 29.2
[2017-07-30 09:57] VITALS: BP 127/85; PULSE 61
--- NOTE | 2017-08-02 16:31 | PATH ---
Surgical Pathology Report Patient Name: MIRTA PEREZ [facility]. Rec. #: [id number] /Age/Gender: 1960 (Age: 57) / F Account: [id number] Location: U-ENDOSCOPY Taken: 07/30/2017 Received: 07/30/2017 Reported: 08/02/2017 Physicians: Cristhian Perez M.D. Specimen(s) Received A: BX SECOND PORTION DUODENUM AND DUODENAL BULB B: BX ANTRUM C: BX RECTAL POLYP D: BX CECUM E: BX SIGMOID Clinical History Preoperative diagnosis: Family history of colon cancer, screening, occult bleeding Postoperative diagnosis: Gastritis, hiatal hernia, rectal polyp, hemorrhoids Final Diagnosis A. DUODENUM, SECOND PORTION AND BULB, BIOPSY: DUODENAL MUCOSA WITHOUT SIGNIFICANT PATHOLOGIC FINDINGS. B. STOMACH, ANTRUM, BIOPSY: GASTRIC ANTRAL MUCOSA WITH MILD CHRONIC GASTRITIS. IMMUNOHISTOCHEMICAL STAIN FOR H. PYLORI IS NEGATIVE. C. RECTUM, POLYP, BIOPSY: HYPERPLASTIC POLYP. D. CECUM, BIOPSY: COLONIC MUCOSA WITHOUT SIGNIFICANT PATHOLOGIC FINDINGS. NO EVIDENCE OF MICROSCOPIC COLITIS. E. SIGMOID COLON, BIOPSY: COLONIC MUCOSA WITHOUT SIGNIFICANT PATHOLOGIC FINDINGS. NO EVIDENCE OF MICROSCOPIC COLITIS. Electronically Signed Gris Fernandez M.D. Gross Description A. Received in formalin, labeled "biopsy second portion of duodenum and duodenal bulb" are 3 brambila, irregular portions of soft tissue ranging from 0.3-0.4 cm. in greatest dimension. The specimens are submitted in toto in one cassette. B. Received in formalin, labeled "biopsy antrum" are 2 brambila, irregular portions of soft tissue measuring 0.2 and 0.3 cm. in greatest dimension. The specimens are submitted in toto in one cassette. C. Received in formalin, labeled "biopsy rectal polyp" is a brambila, irregular portion of soft tissue measuring 0.3 cm. in greatest dimension. The specimen is submitted in toto in one cassette. D. Received in formalin, labeled "biopsy cecum" are 2 brambila, irregular portions of soft tissue measuring 0.3 and 0.4 cm. in greatest dimension. The specimens are submitted in toto in one cassette. E. Received in formalin, labeled "biopsy sigmoid" is a brambila, irregular portion of soft tissue measuring 0.3 cm. in greatest dimension. The specimen is submitted in toto in one cassette. DL/07/30/2017 saudi07/30/2017
== END 2017-07-30 09:57 | disposition home or self-care (01) ==
LOC: JASU-ENDO 07:09
PROVIDERS: ATTEND Internal Medicine Gastroenterology
PROC: 0DBN8ZX Excision of Sigmoid Colon, Via Natural or Artificial Opening Endoscopic, Diagnostic (ICD-10-PCS; 2017-07-30)
PROC: 0DBP8ZX Excision of Rectum, Via Natural or Artificial Opening Endoscopic, Diagnostic (ICD-10-PCS; 2017-07-30)
PROC: 0DB98ZX Excision of Duodenum, Via Natural or Artificial Opening Endoscopic, Diagnostic (ICD-10-PCS; 2017-07-30)
PROC: 0DB68ZX Excision of Stomach, Via Natural or Artificial Opening Endoscopic, Diagnostic (ICD-10-PCS; 2017-07-30)
PROC: 0DBH8ZX Excision of Cecum, Via Natural or Artificial Opening Endoscopic, Diagnostic (ICD-10-PCS; principal; 2017-07-30 08:00)
DX: Z12.11 Encounter for screening for malignant neoplasm of colon (principal); K29.71 Gastritis, unspecified, with bleeding; Z80.0 Family history of malignant neoplasm of digestive organs; K62.1 Rectal polyp; K64.8 Other hemorrhoids; K29.60 Other gastritis without bleeding; K44.9 Diaphragmatic hernia without obstruction or gangrene
CPT/HCPCS: 88305-TC; 88342-TC

== ENCOUNTER 2022-08-31 04:28 | Day surgery (SDC) | payer OTHER ==
[2022-08-28 14:41] VITALS: BMI 27.1
[2022-08-31 10:59] VITALS: TEMP 97.5
[2022-08-31 12:26] VITALS: BP 124/74; PULSE 71; RESP 19
== END 2022-08-31 12:24 | disposition home or self-care (01) ==
LOC: JASU-ENDO 04:28
PROVIDERS: ATTEND Internal Medicine Gastroenterology
PROC: 0DBH8ZX Excision of Cecum, Via Natural or Artificial Opening Endoscopic, Diagnostic (ICD-10-PCS; 2022-08-31)
PROC: 0DB98ZX Excision of Duodenum, Via Natural or Artificial Opening Endoscopic, Diagnostic (ICD-10-PCS; 2022-08-31)
PROC: 0DB78ZX Excision of Stomach, Pylorus, Via Natural or Artificial Opening Endoscopic, Diagnostic (ICD-10-PCS; 2022-08-31)
PROC: 0DB68ZX Excision of Stomach, Via Natural or Artificial Opening Endoscopic, Diagnostic (ICD-10-PCS; 2022-08-31)
PROC: 0DB28ZX Excision of Middle Esophagus, Via Natural or Artificial Opening Endoscopic, Diagnostic (ICD-10-PCS; 2022-08-31)
PROC: 0DB48ZX Excision of Esophagogastric Junction, Via Natural or Artificial Opening Endoscopic, Diagnostic (ICD-10-PCS; 2022-08-31)
PROC: 0DBK8ZX Excision of Ascending Colon, Via Natural or Artificial Opening Endoscopic, Diagnostic (ICD-10-PCS; principal; 2022-08-31 10:00)
DX: Z12.11 Encounter for screening for malignant neoplasm of colon (principal); D12.2 Benign neoplasm of ascending colon; D12.0 Benign neoplasm of cecum; K64.8 Other hemorrhoids; K57.30 Diverticulosis of large intestine without perforation or abscess without bleeding; K21.00 Gastro-esophageal reflux disease with esophagitis, without bleeding; K44.9 Diaphragmatic hernia without obstruction or gangrene; K22.89 Other specified disease of esophagus; K29.50 Unspecified chronic gastritis without bleeding
CPT/HCPCS: 88305-TC; 88342-TC